=== PATIENT | male | born 1955 | race Caucasian/White ===

== ENCOUNTER 2017-10-18 19:59 | Inpatient (IN) | payer MEDICARE ==
[2017-10-18 20:54] LABS: Hematocrit 23.8 % (42.0-52.0); Mean Platelet Volume 7.9 fL (7.4-10.4); Red Blood Cell (RBC) Count 2.29 mill/uL (4.70-6.10)
[2017-10-18 21:13] LABS: ALT (SGPT) 9 U/L (8-55); AST (SGOT) 12 U/L (5-34); Alkaline Phosphatase 77 U/L (40-150); Anion Gap 22 mmol/L (10-20); BUN (Urea Nitrogen) 115 mg/dL (8.4-25.7); Bilirubin, Total 0.5 mg/dL (0.2-1.2); Calc. Creatinine Clearance 0 mL/min (70-130); Calcium 8.2 mg/dL (7.8-10.44); Carbon Dioxide 11 mmol/L (23-31); Chloride 113 mmol/L (98-107); Estimated GFR-MDRD 4; Globulin 3.4 g/dL (2.4-3.5)
[2017-10-18 21:14] LABS: #Lymphocytes 0.7 thou/uL (1.20-3.40); #Monocytes 0.4 thou/uL (0.11-0.59); #Neutrophils 2.9 thou/uL (1.40-6.50); %Basophils 0.1 % (0.0-1.0); %Eosinophils 0.6 % (0.0-10.0); %Lymphocytes 16.7 % (21.0-51.0); %Monocytes 10.2 % (0.0-10.0); Ovalocytes SLIGHT = 2-5 cells (100X) (0-1/hpf); Tear Drops SLIGHT = 2-5 cells (100X) (0-1/hpf)
[2017-10-19] MEDS ORDERED: Furosemide 100 MG/10 ML VIAL ONE (00:14)
[2017-10-19] MEDS ORDERED: Sodium Bicarbonate 100 MEQ in Dextrose 5% in Water 1,000 ML IV SCH ×2 (00:30)
--- NOTE | 2017-10-19 01:39 | PDOC.EVN ---
Event Note - Event Note Event Note: [id number] 1. CKD stage 4-5 + ACute fluid overload: neph consult, need central venogram and fistulogram also to evalaute avf 2. Metabolic acidosis 3. Hyperkalemia 4. htn plan: see orders
[2017-10-19] MEDS ORDERED: Sodium Bicarb 50 MEQ/50 ML Abboject 8.4% SYRINGE ONE ×3 (01:54→01:58)
[2017-10-19 02:11] LABS: Troponin I 0.048 ng/mL (< 0.028)
[2017-10-19] MEDS ORDERED: Ondansetron HCl/PF 4 MG/2 ML Vial IVP PRN (02:43)
[2017-10-19] MEDS ORDERED: Acetaminophen 325 MG TAB PO PRN (02:43)
[2017-10-19] MEDS: Sodium Bicarbonate Tab 325 MG TAB PO SCH ×4 (03:52→20:54)
[2017-10-19] MEDS: Furosemide 100 MG/10 ML VIAL SLOW IVP SCH ×2 (05:14→14:00)
[2017-10-19 05:21] LABS: #Lymphocytes 0.7 thou/uL (1.20-3.40); #Monocytes 0.4 thou/uL (0.11-0.59); #Neutrophils 2.8 thou/uL (1.40-6.50); %Basophils 0.5 % (0.0-1.0); %Eosinophils 0.9 % (0.0-10.0); %Lymphocytes 17.8 % (21.0-51.0); %Monocytes 9.4 % (0.0-10.0); Mean Platelet Volume 7.9 fL (7.4-10.4); Red Blood Cell (RBC) Count 2.13 mill/uL (4.70-6.10); White Blood Cell (WBC) Count 3.9 thou/uL (4.8-10.8)
[2017-10-19 05:48] LABS: ALT (SGPT) 9 U/L (8-55); AST (SGOT) 12 U/L (5-34); Alkaline Phosphatase 68 U/L (40-150); Anion Gap 20 mmol/L (10-20); BUN (Urea Nitrogen) 120 mg/dL (8.4-25.7); Bilirubin, Total 0.5 mg/dL (0.2-1.2); Calc. Creatinine Clearance 10 mL/min (70-130); Calcium 8.1 mg/dL (7.8-10.44); Carbon Dioxide 12 mmol/L (23-31); Chloride 114 mmol/L (98-107); Estimated GFR-MDRD 4; Globulin 3.2 g/dL (2.4-3.5); Protein, Total 6.7 g/dL (5.8-8.1)
[2017-10-19] MEDS ORDERED: HYDROcodone/Acetaminophen 5/325 mg Tablet PO PRN (08:55)
[2017-10-19] MEDS ORDERED: Epoetin (ESRD) 20,000 UNITS/ML SC SCH (09:00)
[2017-10-19] MEDS ORDERED: Heparin 1,000 UNITS/ML VIAL ONE ×2 (09:00→10:00)
[2017-10-19] MEDS: Heparin 5,000 UNITS/ML VIAL SC SCH ×3 (11:35→20:54)
--- NOTE | 2017-10-19 11:38 | HP ---
DATE OF ADMISSION: 10/19/2017 CHIEF COMPLAINT: Diffuse body swelling. HISTORY OF PRESENT ILLNESS: The patient is a 62-year-old male with past medical history of end-stage renal disease, hypertension, history of remote seminoma and history of percutaneous nephrostomy tube on the right side, now came to the ER complaining of diffuse body swelling. The patient said he used to be on dialysis and off dialysis for the past 7 years. Since he started noticing some swelling all over the body on May, but the swelling got worse the last few weeks. Complains of dyspnea, complains of bilateral leg swelling , complains of some urine output to the nephrostomy tube and also Ruby, but denies any nausea, denies any vomiting, denies any chest pain, denies any palpitations. Today, the swelling got worse, that's why he came to the ER. Denies any fever, denies any chills. Complaints of decreased urine output also. PAST MEDICAL HISTORY: As per HPI. PAST SURGICAL HISTORY: Percutaneous nephrostomy tube, AV fistula. SOCIAL HISTORY: Denies smoking, denies alcohol, denies any drugs. FAMILY HISTORY: Positive for heart problems. ALLERGIES: Reviewed. REVIEW OF SYSTEMS: Constitutional: Denies any fever, denies any chills. Eyes: Denies any vision problems. Ears: Denies any hearing loss. Neck: Denies any neck pain. Cardiovascular: Denies any chest pain. Respiratory: Denies any dyspnea. Denies any cough. Gastrointestinal: Denies any nausea, vomiting. Musculoskeletal: Positive for bilateral lower extremity swelling and positive for left upper extremity swelling. Psychiatric: Denies anxiety. Cranial nerve system: Denies syncope. Integumentary: Denies any rash. All other systems are reviewed and are negative. PHYSICAL EXAMINATION: CONSTITUTIONAL/VITAL SIGNS: At the time of H and P performed, afebrile, respiratory rate 18, pulse ox 97%. GENERAL: The patient appears comfortable. HEENT: Pupils equal, round, and reactive to light. Anterior nares patent. Hearing normal. Teeth intact. Tongue is moist. NECK: No JVD. Supple. Left side of the neck, prominent neck veins seen. CARDIOVASCULAR: S1, S2 present. Regular rate and rhythm, no murmurs, no rubs, no gallops. RESPIRATORY: No wheezing, no rhonchi. Breath sounds bilaterally. GASTROINTESTINAL: Abdomen is soft, nontender, no guarding, no organomegaly, no masses felt. MUSCULOSKELETAL: Bilateral lower extremity, 3+ pitting edema present. Left upper extremity, positive for swelling. PSYCHIATRIC: Mood is appropriate at this time. INTEGUMENTARY: No rashes seen. CRANIAL NERVE SYSTEM: Awake, follows commands. Strength intact, sensory intact. LABORATORY DATA: At the time of H and P performed, sodium 140, potassium 5.7, chloride 113, CO2 of 11, BUN of 115, creatinine 12.57. White count 4, hemoglobin 7.5, platelet count is 155. ASSESSMENT AND PLAN: The patient is 62-year-old male; 1. Acute fluid overload plus chronic kidney disease stage IV to V. The patient did speak to the cost reduction engineer. Patient has dialysis. The patient did receive 100 mg of Lasix in the ER. We will monitor urine output. We will follow the patient closely. 2. Severe metabolic acidosis. The patient did receive amp of IV bicarb push in the ER. We will monitor bicarbonate level closely. 3. Hyperkalemia. We will give Kayexalate 30 grams p.o. x1. 4. Acute anemia of chronic disease. Monitor hemoglobin closely. We will check iron studies. 5. History of hypertension. Continue home blood pressure medications. 6. History of remote seminoma, status post percutaneous nephrostomy tube. Continue nephrostomy tube. 7. AVF: Need to r/o central venous stenosis The case was discussed in detail with the patient and patient's also. JOSE MARTIN
[2017-10-19] MEDS ORDERED: Epoetin (ESRD) 10,000 UNITS/ML VIAL SC SCH (12:00)
--- NOTE | 2017-10-19 12:56 | PDOC.EVN ---
Event Note - Event Note Event Note: pt seen and examined.admitted earlier today for swelling.Foun dto have worsening CKD. Chart reviewed.care discussed w pt and family. VSS. CTA b/l. RRR severe LE edema as well as edema around HD fistula. Pt agreeable to HD. Discussed w Dr. Day. Fistula was tried for Hd without success. Will need Temp HD cathter. will get done tomorrow. Cont IV lasix for now. Pt makes some urine. Cont Bicarb PO. Monitor labs. recheck K later today.Kayexalate,lasix given. Get ECHo to assess cardiac Function. Start Procrit for anemia of chr kidney disease.Pt refusing blood transfusion for muslim reasons. will follow. daily labs
[2017-10-19] MEDS ORDERED: CEFAZOLIN/Water 2 GM/20 ML SYRINGE SLOW IVP SCH (14:15)
--- NOTE | 2017-10-19 15:26 | HP ---
HISTORY OF PRESENT ILLNESS: Ajit Farah is a 62-year-old male patient with end-stage renal diseas e, we need dialysis access. Potassium is 5.3, BUN 120, creatinine 12. GFR 4. The patient was order ed n.p.o. today, but ate lunch. He has an IV in his right antecubital fossa, which are removed. The patient's left arm is edematous, hand to shoulder and has collateral veins palpable periclavicular l eft. This is indicative of subclavian vein occlusion. The patient has a Mor fistula left wrist t hat I placed on 05/02/2010. The patient states that since placement, he has had progressive edema an d enlargement of his left arm, hand to shoulder. He does not have evaluation of this. Patient was o n dialysis for a short time, but stopped dialysis in 2010 and recently had deterioration in renal fun ction, needs to start dialysis again. He has had left IJ hemodialysis catheter placed on 01/[address] Sprague, on 02/02/2010 placed a right nephrostomy tube, cystoscopy and Ruby catheter placeme nt and on another day repeat cystoscopy and ureteral stent placement. He has had a peritoneal dialys is catheter that would not work well and has since been removed in 2009, last vein mapping was 0. PAST MEDICAL HISTORY: Hypertension, chronic kidney disease, history of radiation and chemotherapy fo r seminoma and retroperitoneal, right inguinal hernia repair, umbilical hernia repair in the past, pe ritoneal dialysis catheter placed in the past removed, left arm Mor fistula placed. Multiple dial ysis catheters placed removed. TOBACCO: None. ALCOHOL: None. DRUG USE: None. ALLERGIES LIST: MORPHINE. SOCIAL HISTORY: Tobacco none. Alcohol none. MEDICATIONS: Hydrocodone, Zofran and metoprolol 50 mg daily. REVIEW OF SYSTEMS: Ten point noncontributory except as noted above. PHYSICAL EXAMINATION: VITAL SIGNS: 5 feet 8, 249 pounds, 38 BMI, 97.8, 76, 18, 167/78. GENERAL: Antecubital IV removed, right. Left arm swelling hand to shoulder. Collateral veins palpa ble, periclavicular left. LUNGS: Clear to auscultation. CARDIAC: Regular rate and rhythm without murmur or gallop. ABDOMEN: Obese, soft, nontender. EXTREMITIES: Edematous, left upper extremity was edematous hand and shoulder with palpable venous co llaterals, periclavicular left. LABORATORY DATA: White count 3.9, hemoglobin 6.9, platelet count 166,000. Electrolytes as noted abo ve. ASSESSMENT AND PLAN: 1. End-stage renal disease in need of dialysis access. Unfortunately, he has been eating lunch. At this point, would recommend placement of hemodialysis catheter and central line tomorrow, would avoi d IVs above his wrist, right. We will obtain ultrasound vein mapping right arm for dialysis access. He would benefit from a left arm fistulogram in the future and document left subclavian vein occlusi on. Discussed with Nephrology and might do that prior to discharge home this hospitalization and he will need a new dialysis access in his right arm and should avoid IV access, blood draws above his wr ist. Could place a femoral vein central line if necessary. 2. History of retroperitoneal radiation for seminoma. 3. Obesity.
--- NOTE | 2017-10-19 18:40 | ULT ---
BILATERAL UPPER EXTREMITY VENOUS ULTRASOUND MAPPING: Date: 10/19/17 HISTORY: End-stage renal disease. COMPARISON: None. FINDINGS: RIGHT UPPER EXTREMITY BRACHIAL ARTERY: 6.3 mm RADIAL ARTERY: 3.7 mm ULNAR ARTERY: 2.7 mm CEPHALIC VEIN Proximal Humerus: 1.0 mm Mid Humerus: 1.0 mm Distal Humerus: 1.0 mm Antecubital Fossa: 0.9 mm Proximal Forearm: 1.4 mm Mid Forearm: 1.2 mm Distal Forearm: 1.0 mm BASILIC VEIN Proximal Humerus: 4.0 mm Mid Humerus: 4.5 mm Distal Humerus: 3.9 mm Antecubital Fossa: Clot Proximal Forearm: 2.0 mm Mid Forearm: 2.3 mm Distal Forearm: 1.2 mm LEFT UPPER EXTREMITY Arteries could not be appreciated due to edema. CEPHALIC VEIN Proximal Humerus: 5.0 mm Mid Humerus: 5.2 mm Distal Humerus: 4.9 mm Antecubital Fossa: 5.4 mm Proximal Forearm: 5.1 mm Mid Forearm: 4.1 mm Distal Forearm: 4.6 mm BASILIC VEIN Proximal Humerus: 7.3 mm Mid Humerus: 6.1 mm Distal Humerus: 5.6 mm Antecubital Fossa: 4.9 mm Proximal Forearm: Fistula Mid Forearm: 2.8 mm Distal Forearm: 2.0 mm IMPRESSION: Measurements as above. POS: [facility]
[2017-10-20] MEDS: Sodium Bicarbonate Tab 325 MG TAB PO SCH ×4 (04:09→21:53)
[2017-10-20 05:34] LABS: BUN (Urea Nitrogen) 118 mg/dL (8.4-25.7); Calc. Creatinine Clearance 10 mL/min (70-130); Calcium 7.5 mg/dL (7.8-10.44); Carbon Dioxide Less than 8 mmol/L (23-31); Chloride 114 mmol/L (98-107); Estimated GFR-MDRD 4; Magnesium 2.1 mg/dL (1.6-2.6); Phosphorus 8.2 mg/dL (2.3-4.7)
[2017-10-20] MEDS ORDERED: Sodium Bicarb 50 MEQ/50 ML Abboject 8.4% SYRINGE IVP SCH (06:00)
--- NOTE | 2017-10-20 06:25 | CON ---
DATE OF CONSULTATION: 10/19/2017 CONSULTING PHYSICIAN: Dr. Saba. REASON FOR CONSULTATION: Acute kidney injury. REASON FOR ADMISSION: Swelling. HISTORY OF PRESENT ILLNESS: This 62-year-old male with history of chronic kidney disease, hypertensi on, remote history of seminoma, urinary obstruction, came to the hospital with swelling. The patient has history of dialysis in the past with hemodialysis and peritoneal dialysis. He was on hemodialys is with some recovery of function, has been off dialysis for 7 years, and now came to the hospital wi th progressive swelling. He was also having progressive swelling in his access. He had a fistula pl aced in that arm, and it has been swelling. The patient was evaluated today and his fistula was not functioning and Surgery was consulted and the patient denies any chest pain, no shortness of breath, no palpitations. No fever or chills. No nausea, vomiting. PAST MEDICAL HISTORY: Positive for end-stage renal disease, hypertension, remote history of seminoma , urinary tract infections. PAST SURGICAL HISTORY: Percutaneous nephrostomy tube, AV fistula placement, PD catheter placement. HOME MEDICATIONS: Include Elrod, Ambien, and metoprolol. ALLERGIES: MORPHINE. SOCIAL HISTORY: No smoking, alcohol or illicit drug abuse. FAMILY HISTORY: Positive for heart disease. REVIEW OF SYSTEMS: The following complete review of systems was negative, unless otherwise mentioned in the HPI or below: Constitutional: Weight loss or gain, ability to conduct usual activities. Skin: Rash, itching. Eyes: Double vision, pain. ENT/Mouth: Nose bleeding, neck stiffness, pain, tenderness. Cardiovascular: Palpitations, dyspnea on exertion, orthopnea. Respiratory: Shortness of breath, wheezing, cough, hemoptysis, fever or night sweats. Gastrointestinal: Poor appetite, abdominal pain, heartburn, nausea, vomiting, constipation, or diarr hea. Genitourinary: Urgency, frequency, dysuria, nocturia. Musculoskeletal: Pain, swelling. Neurologic/Psychiatric: Anxiety, depression. Allergy/Immunologic: Skin rash, bleeding tendency. PHYSICAL EXAMINATION: GENERAL: This is a well-built male in no apparent distress. VITAL SIGNS: Temperature 98.4, pulse 70, respiratory rate 18, blood pressure 158/72. HEENT: Atraumatic, normocephalic. Oral mucosa is moist. NECK: Supple, no masses. CARDIOVASCULAR: S1, S2 heard. Rate and rhythm regular. RESPIRATORY: Clear. GASTROINTESTINAL: Abdomen is soft. MUSCULOSKELETAL: 2+ edema. DERMATOLOGIC: No skin rash. NEUROLOGIC: Alert, awake. PSYCHIATRIC: Mood and affect normal. LABORATORY DATA: Hemoglobin is 6.9. Potassium is 5.3, bicarbonate is 12, BUN is 120, and creatinine is 12.7. ASSESSMENT AND PLAN: 1. End-stage renal disease. Plan is to start on hemodialysis, but access is not working. We will c onsult surgery for possible catheter placement and revision of fistula if possible. 2. Hyperkalemia, better. Continue medical management. 3. Acidosis. Continue on bicarbonate. 4. Edema with fluid overload. We will continue on Lasix. The patient still makes urine. He made 1 400 mL of urine. 5. Anemia, need transfusions. Continue Epogen with dialysis for now. 6. Mild hypoalbuminemia. The patient is agreeable to start dialysis. He understands the risk, Surgery consult for access plac ement. Thank you for the consult.
[2017-10-20] MEDS: Furosemide 100 MG/10 ML VIAL SLOW IVP SCH ×2 (06:40→17:22)
[2017-10-20] MEDS ORDERED: Dextrose 50% Abboject 50 ML SYRINGE IVP SCH (07:30)
[2017-10-20] MEDS ORDERED: Insulin Regular 300 UNITS/3 ML VIAL IVP SCH (07:30)
[2017-10-20] MEDS ORDERED: Sodium Bicarb 50 MEQ/50 ML VIAL IVP SCH (07:45)
[2017-10-20] MEDS ORDERED: Epoetin (NON-ESRD) 20,000 UNITS/ML ML IVP SCH (09:00)
[2017-10-20] MEDS: Heparin 5,000 UNITS/ML VIAL SC SCH ×3 (09:03→21:55)
[2017-10-20] MEDS: HYDROcodone/Acetaminophen 5/325 mg Tablet PO PRN ×2 (09:04→19:17)
--- NOTE | 2017-10-20 14:14 | OP ---
PREOPERATIVE DIAGNOSES: Clinically, subclavian vein obstruction, left arm with marked left arm edema , inadequate cephalic vein, right arm, ultrasound vein mapping, iatrogenic thrombus in his basilic ve in due to intravenous access antecubital area, end-stage renal disease patient (immediately removed o n my evaluation) with severe acidosis and uremia, need for urgent dialysis access, potassium 6.3, car bon dioxide less than 8, anion gap too numerous to evaluate (lack of n.p.o. status prevented cuffed t unnel dialysis catheter placement yesterday). POSTOPERATIVE DIAGNOSES: Clinically, subclavian vein obstruction, left arm with marked left arm varun a, inadequate cephalic vein, right arm, ultrasound vein mapping, iatrogenic thrombus in his basilic v ein due to intravenous access antecubital area, end-stage renal disease patient (immediately removed on my evaluation) with severe acidosis and uremia, need for urgent dialysis access, potassium 6.3, ca rbon dioxide less than 8, anion gap too numerous to evaluate (lack of n.p.o. status prevented cuffed tunnel dialysis catheter placement yesterday). PROCEDURE: Right femoral vein Trialysis catheter placement. SURGEON: Juvenal Reeves M.D. ANESTHESIA: 1% Xylocaine. PROCEDURE IN DETAIL: At the patient's bedside, his right groin was clipped of hair, prepared with Ch loraPrep, draped in routine fashion. Local anesthetic with 1% Xylocaine infiltrated skin and subcuta neous tissue. Second ChloraPrep used after it was draped. Femoral vein cannulated with the trocar c atheter. J-wire threaded. Trocar catheter removed. Skin incised and enlarged sharply and smaller a nd medium sized dilators placed over the J-wire into the femoral vein and removed. The distal port o f the Trialysis catheter placed over the J-wire in the femoral vein. Each port aspirated blood and f lushed with heparinized saline solution 100 units heparin per mL. Patient tolerated the procedure we ll without complications. Catheter secured with 2 interrupted sutures of 3-0 nylon. Sterile dressin g applied and an urgent dialysis ordered (although this catheter was placed in 0700, patient did not go to dialysis until 12:30 p.m. leading to cancellation of placement of cuffed tunnel dialysis cathet er today).
--- NOTE | 2017-10-20 14:42 | PDOC.PN ---
- Subjective Encounter Start Date: 10/20/17 Encounter Start Time: 14:40 Subjective: actually feels much better. denies any new complaints - Objective MAR Reviewed: Yes Vital Signs & Weight: Vital Signs (12 hours) Temp Pulse Resp BP BP Pulse Ox 10/20/17 11:37 97.8 F 69 12 138/67 93 L 10/20/17 08:00 97.7 F 76 20 137/67 92 L 10/20/17 06:37 76 20 145/68 H 10/20/17 04:00 98.4 F 76 18 131/64 95 Weight Weight 248 lb I&O: 10/19/17 10/20/17 10/21/17 06:59 06:59 06:59 Intake Total 50 1438 Output Total 325 2450 Balance -275 -1012 Result Diagrams: 10/19/17 05:06 10/20/17 04:27 Radiology Reviewed by me: Yes (ECHO-diastolic dysFx.severe Pulm HTN.) Phys Exam - Physical Examination Constitutional: NAD HEENT: PERRLA, moist MMs, sclera anicteric, oral pharynx no lesions Neck: no nodes, no JVD, supple, full ROM Respiratory: no wheezing, no rales, no rhonchi, clear to auscultation bilateral Cardiovascular: RRR, no significant murmur, no rub, gallop Gastrointestinal: soft, non-tender, no distention, positive bowel sounds Musculoskeletal: no edema, pulses present Neurological: non-focal, normal sensation, moves all 4 limbs Psychiatric: normal affect, A&O x 3 Skin: no rash Dx/Plan (1) Acute kidney injury superimposed on CKD Code(s): N17.9 - ACUTE KIDNEY FAILURE, UNSPECIFIED; N18.9 - CHRONIC KIDNEY DISEASE, UNSPECIFIED Status: Acute (2) High anion gap metabolic acidosis Code(s): E87.2 - ACIDOSIS Status: Acute (3) Fluid overload Code(s): E87.70 - FLUID OVERLOAD, UNSPECIFIED Status: Acute (4) Hyperkalemia Code(s): E87.5 - HYPERKALEMIA Status: Acute (5) DM2 (diabetes mellitus, type 2) Status: Acute (6) HTN (hypertension) Code(s): I10 - ESSENTIAL (PRIMARY) HYPERTENSION Status: Acute (7) Anemia in chronic kidney disease (CKD) Code(s): N18.9 - CHRONIC KIDNEY DISEASE, UNSPECIFIED; D63.1 - ANEMIA IN CHRONIC KIDNEY DISEASE Status: Chronic (8) Troponin level elevated Code(s): R74.8 - ABNORMAL LEVELS OF OTHER SERUM ENZYMES Status: Acute Comment: likley due to JANEL - Plan DVT proph w/SCDs Given dextrose+insulin & kayexalate this am for high K.monitor. -: HD catheter placed.HD to be initiated today.receiving Po bicarb as well -: cont home meds as below. avoid nephrotoxic meds -: rechekc potassium post HD.am labs. -: cont IV lasix for now.Nephrology following. * .cont epogen.Pt refused blood transfusion due to restorationist reasons. * recheck CBC in am. * cont supportive care Review of Systems - Review of Systems Constitutional: negative: Fever, Chills, Sweats, Weakness, Malaise, Other ENT: negative: Ear Pain, Ear Discharge, Nose Pain, Nose Discharge, Nose Congestion, Mouth Pain, Mouth Swelling, Throat Pain, Throat Swelling, Other Respiratory: negative: Cough, Dry, Shortness of Breath, Hemoptysis, SOB with Excertion, Pleuritic Pain, Sputum, Wheezing Cardiovascular: negative: Chest Pain, Palpitations, Orthopnea, Paroxysmal Noc. Dyspnea, Edema, Light Headedness, Other Gastrointestinal: negative: Nausea, Vomiting, Abdominal Pain, Diarrhea, Constipation, Melena, Hematochezia, Other Genitourinary: negative: Dysuria, Frequency, Incontinence, Hematuria, Retention , Other Musculoskeletal: negative: Neck Pain, Shoulder Pain, Arm Pain, Back Pain, Hand Pain, Leg Pain, Foot Pain, Other Neurological: negative: Weakness, Numbness, Incoordination, Change in Speech, Confusion, Seizures, Other - Medications/Allergies Allergies/Adverse Reactions: Allergies Allergy/AdvReac Type Severity Reaction Status Date / Time morphine Allergy Rash Verified 10/19/17 03:43 Medications: Current Medications Acetaminophen (Tylenol) 650 mg PO Q4H PRN PRN Reason: Headache/Fever or Pain Hydrocodone Bitart/Acetaminophen (Gary 5/325) 2 tab PO Q4H PRN PRN Reason: Moderate Pain (4-6) Last Admin: 10/20/17 09:04 Dose: 2 tab Hydrocodone Bitart/Acetaminophen (Gary 5/325) 1 tab PO Q4H PRN PRN Reason: Mild Pain (1-3) Epoetin Brian (Procrit) 10,000 units IVP [id number]@[id number] [facility] Furosemide (Lasix) 80 mg SLOW IVP 0600,1400 [facility] Last Admin: 10/20/17 06:40 Dose: 80 mg Heparin Sodium (Porcine) (Heparin) 5,000 units SC TID [facility] Last Admin: 10/20/17 09:03 Dose: 5,000 units Metoprolol Succinate (Toprol Xl) 50 mg PO DAILY [facility] Last Admin: 10/20/17 06:40 Dose: 50 mg Ondansetron HCl (Zofran) 4 mg IVP Q6H PRN PRN Reason: Nausea/Vomiting Last Admin: 10/20/17 06:49 Dose: 4 mg Sodium Bicarbonate (Bicarbonate, Sodium) 1,300 mg PO 0300,0900,1500,2100 [facility] Last Admin: 10/20/17 09:26 Dose: 1,300 mg Sodium Chloride (Flush - Normal Saline) 10 ml IVF Q12HR [facility] Last Admin: 10/19/17 20:55 Dose: Not Given Sodium Chloride (Flush - Normal Saline) 10 ml IVF PRN PRN PRN Reason: Saline Flush Last Admin: 10/20/17 09:04 Dose: 10 ml
--- NOTE | 2017-10-20 15:29 | PRG ---
DATE OF SERVICE: 10/20/2017 SUBJECTIVE: Mr. Ajit Farah this morning had a potassium of 3.3, severely abnormal anion gap and se dariel acidosis. His surgery was postponed and a temporary dialysis catheter placed in his right groin at 0700 hours for "EMERGENT" dialysis. Patient, however, did not go to dialysis until 12:45. His s urgery was therefore canceled today and he will dialyze using his temporary groin dialysis catheter. We will ask that he be dialyzed first thing in the morning and then at approximate ly 11:30 here noon, we will place a cuffed tunnel dialysis catheter and a central line, so we can rem ove his groin catheter. Patient has clinically an obstructed left subclavian vein and a markedly dorita matous left arm with venous collaterals left periclavicular area. He has a fistula that has not been able to be accessed, because of severe arm edema. It is very likely that his left arm is exhausted for dialysis access. On admission in his chronic kidney disease, end-stage renal disease, a right an tecubital IV was placed resulted in thrombosis of his basilic vein. His cephalic vein is inadequate. Such ocurrence, probably will [place] the patient to have a prosthetic graft, which has poor durabi lity and increased interventions to maintain patency. Patient is running out of dialysis access alre ness. Once his edema has improved, we will expose his right arm for the possibility of a fistula, hop efully the thrombus can be removed and he may need a staged basilic vein fistula with later transposi tion or possibly he may need a prosthetic graft placed. We will plan this portion of the operation e fr[place] next week. Plan is to have dialyze him first thing in the morning using his Trialysis right pattie in catheter that are placed at 7:00 this morning and then he will be available for 11:30 to 12:00 to have hemodialysis catheter cuffed tunnel placed and a central line, so we can remove his right groin catheter.
[2017-10-20] MEDS: Epoetin (ESRD) 10,000 UNITS/ML VIAL IVP SCH (17:20)
[2017-10-20] MEDS ORDERED: cloNIDine 0.1 MG TAB PO PRN (17:54)
[2017-10-20] MEDS ORDERED: cloNIDine 0.1 MG TAB PO SCH (18:00)
[2017-10-20 18:11] LABS: Anion Gap 18 mmol/L (10-20); BUN (Urea Nitrogen) 97 mg/dL (8.4-25.7); Calc. Creatinine Clearance 12 mL/min (70-130); Calcium 7.9 mg/dL (7.8-10.44); Carbon Dioxide 20 mmol/L (23-31); Chloride 108 mmol/L (98-107); Estimated GFR-MDRD 5
--- NOTE | 2017-10-20 23:39 | PRG ---
DATE OF SERVICE: 09/19/2017 SUBJECTIVE: Patient was seen and examined at bedside and overnight events noted. Patient denies any shortness of breath or chest pain or palpitation. No history of nausea or vomiting or diarrhea or f ever or chills or cramps. OBJECTIVE: GENERAL: This is an obese male in no apparent distress. VITAL SIGNS: Temperature 97.8, pulse 69, respiratory , blood pressure 138/67. HEENT: Atraumatic, normocephalic. Oral mucosa is moist. NECK: Supple. CARDIOVASCULAR: S1, S2 heard. Rate and rhythm regular. RESPIRATORY: Clear to auscultation. GASTROINTESTINAL: Abdomen is soft. MUSCULOSKELETAL: No tenderness. No edema. DERMATOLOGIC: No skin rash. NEUROLOGIC: Alert and awake and oriented x3. No focal neurologic deficits. Moving all the extremit ies. PSYCHIATRIC: Mood and affect normal. LABORATORY DATA: Potassium was 6.3 this morning, bicarbonate was less than 8, BUN is 118, creatinine is 12.3. ASSESSMENT AND PLAN: 1. End-stage renal disease. Will plan for dialysis. 2. Hyperkalemia, emergent dialysis today. 3. Acidosis getting worse. 4. Edema. 5. Hypoalbuminemia. 6. Anemia. Plan is to start on dialysis. I appreciate help from Surgery. Plan for surgery today.
[2017-10-21] MEDS: Sodium Bicarbonate Tab 325 MG TAB PO SCH ×5 (03:20→21:45)
[2017-10-21] MEDS: Furosemide 100 MG/10 ML VIAL SLOW IVP SCH ×2 (05:15→15:45)
[2017-10-21 05:41] LABS: #Eosinphils 0.1 thou/uL (0.0-0.7); #Lymphocytes 0.8 thou/uL (1.20-3.40); #Monocytes 0.5 thou/uL (0.11-0.59); #Neutrophils 3.2 thou/uL (1.40-6.50); %Basophils 0.5 % (0.0-1.0); %Eosinophils 1.3 % (0.0-10.0); %Lymphocytes 18.3 % (21.0-51.0); %Monocytes 10.1 % (0.0-10.0); Hematocrit 20.8 % (42.0-52.0); Red Blood Cell (RBC) Count 2.03 mill/uL (4.70-6.10); White Blood Cell (WBC) Count 4.5 thou/uL (4.8-10.8)
[2017-10-21 05:45] VITALS: BMI 37.6
[2017-10-21 05:50] LABS: Anion Gap 15 mmol/L (10-20); BUN (Urea Nitrogen) 98 mg/dL (8.4-25.7); Calc. Creatinine Clearance 11 mL/min (70-130); Calcium 7.6 mg/dL (7.8-10.44); Carbon Dioxide 24 mmol/L (23-31); Chloride 108 mmol/L (98-107); Estimated GFR-MDRD 5
[2017-10-21 08:10] LABS: Iron 32 ug/dL (65-175)
[2017-10-21] MEDS: Heparin 5,000 UNITS/ML VIAL SC SCH ×3 (09:00→21:47)
[2017-10-21] MEDS ORDERED: Heparin 10,000 UNITS/ 10 ML VIAL ONE (09:00)
--- NOTE | 2017-10-21 09:22 | PDOC.PN ---
- Subjective Encounter Start Date: 10/21/17 Encounter Start Time: 07:20 -: old records requested/rev pt seen in dialysis room, no complaint, tolerating dialysis, he does not want blood transfusion - Objective Resuscitation Status: Resuscitation Status FULL:Full Resuscitation MAR Reviewed: Yes Vital Signs & Weight: Vital Signs (12 hours) Temp Pulse Resp BP Pulse Ox 10/21/17 04:00 98.2 F 72 20 138/67 95 10/20/17 23:41 97.7 F 75 20 126/63 95 Weight Weight 247 lb 8 oz I&O: 10/20/17 10/21/17 10/22/17 06:59 06:59 06:59 Intake Total 1438 1170 Output Total 2450 3550 Balance -1012 -2380 Result Diagrams: 10/21/17 05:00 10/21/17 05:00 EKG Reviewed by me: Yes (nsr) Phys Exam - Physical Examination Constitutional: NAD HEENT: PERRLA, moist MMs, sclera anicteric Neck: no JVD, supple Respiratory: no wheezing, no rales, no rhonchi reduced air entry at base Cardiovascular: RRR, no significant murmur, no rub Gastrointestinal: soft, non-tender, no distention, positive bowel sounds obesity+ Musculoskeletal: pulses present, edema present left upper extrimity swelling Neurological: non-focal, normal sensation, moves all 4 limbs Psychiatric: normal affect, A&O x 3 Skin: no rash, normal turgor Dx/Plan (1) Acute on chronic combined systolic and diastolic CHF (congestive heart failure) Code(s): I50.43 - ACUTE ON CHRONIC COMBINED SYSTOLIC AND DIASTOLIC HRT FAIL Status: Acute (2) Acute worsening of stage 4 chronic kidney disease Code(s): N28.9 - DISORDER OF KIDNEY AND URETER, UNSPECIFIED; N18.4 - CHRONIC KIDNEY DISEASE, STAGE 4 (SEVERE) Status: Acute (3) DM2 (diabetes mellitus, type 2) Status: Acute (4) Fluid overload Code(s): E87.70 - FLUID OVERLOAD, UNSPECIFIED Status: Acute (5) HTN (hypertension) Code(s): I10 - ESSENTIAL (PRIMARY) HYPERTENSION Status: Acute (6) High anion gap metabolic acidosis Code(s): E87.2 - ACIDOSIS Status: Acute (7) Hyperkalemia Code(s): E87.5 - HYPERKALEMIA Status: Acute (8) Macrocytic anemia Code(s): D53.9 - NUTRITIONAL ANEMIA, UNSPECIFIED Status: Acute (9) Moderate mitral regurgitation Code(s): I34.0 - NONRHEUMATIC MITRAL (VALVE) INSUFFICIENCY Status: Acute (10) Pulmonary hypertension Code(s): I27.20 - PULMONARY HYPERTENSION, UNSPECIFIED Status: Acute (11) Severe tricuspid regurgitation Code(s): I07.1 - RHEUMATIC TRICUSPID INSUFFICIENCY Status: Acute (12) Troponin level elevated Code(s): R74.8 - ABNORMAL LEVELS OF OTHER SERUM ENZYMES Status: Acute Comment: likley due to JANEL (13) Obesity (BMI 30-39.9) Code(s): E66.9 - OBESITY, UNSPECIFIED Status: Chronic - Plan cont current plan of care * pt is getting dialysis via right femoral trilysis catheter. * will add ferrous sulfate, nephrovite * continue selected home medication. * medication reviewed as below * symptomatic treatment * HD as per nephro * will need dialysis access permanent one, AVF unsure working on left UE Review of Systems - Review of Systems ENT: negative: Ear Pain, Ear Discharge, Nose Pain, Nose Discharge, Nose Congestion, Mouth Pain, Mouth Swelling, Throat Pain, Throat Swelling, Other Respiratory: negative: Cough, Dry, Shortness of Breath, Hemoptysis, SOB with Excertion, Pleuritic Pain, Sputum, Wheezing Cardiovascular: negative: Chest Pain, Palpitations, Orthopnea, Paroxysmal Noc. Dyspnea, Edema, Light Headedness, Other Gastrointestinal: negative: Nausea, Vomiting, Abdominal Pain, Diarrhea, Constipation, Melena, Hematochezia, Other Genitourinary: negative: Dysuria, Frequency, Incontinence, Hematuria, Retention , Other Musculoskeletal: negative: Neck Pain, Shoulder Pain, Arm Pain, Back Pain, Hand Pain, Leg Pain, Foot Pain, Other Skin: negative: Rash, Lesions, James, Bruising, Other - Medications/Allergies Allergies/Adverse Reactions: Allergies Allergy/AdvReac Type Severity Reaction Status Date / Time morphine Allergy Rash Verified 10/19/17 03:43 Medications: Current Medications Acetaminophen (Tylenol) 650 mg PO Q4H PRN PRN Reason: Headache/Fever or Pain Hydrocodone Bitart/Acetaminophen ([place] 5/325) 2 tab PO Q4H PRN PRN Reason: Moderate Pain (4-6) Last Admin: 10/20/17 19:17 Dose: 2 tab Hydrocodone Bitart/Acetaminophen ([place] 5/325) 1 tab PO Q4H PRN PRN Reason: Mild Pain (1-3) Clonidine (Catapres) 0.1 mg PO Q4H PRN PRN Reason: SBP>160 Epoetin Brian (Procrit) 10,000 units IVP [id number]@0900 [facility] Last Admin: 10/20/17 17:20 Dose: 10,000 units Ferrous Sulfate (Feosol) 325 mg PO BID-[facility] Furosemide (Lasix) 80 mg SLOW IVP 0600,1400 [facility] Last Admin: 10/21/17 05:15 Dose: 80 mg Heparin Sodium (Porcine) (Heparin) 5,000 units SC TID [facility] Last Admin: 10/20/17 21:55 Dose: 5,000 units Hydralazine HCl (Apresoline) 10 mg SLOW IVP Q4H PRN PRN Reason: SBP>170 Metoprolol Succinate (Toprol Xl) 50 mg PO DAILY [facility] Last Admin: 10/21/17 05:26 Dose: 50 mg Ondansetron HCl (Zofran) 4 mg IVP Q6H PRN PRN Reason: Nausea/Vomiting Last Admin: 10/20/17 06:49 Dose: 4 mg Sodium Bicarbonate (Bicarbonate, Sodium) 1,300 mg PO 0300,0900,1500,2100 [facility] Last Admin: 10/21/17 03:20 Dose: 1,300 mg Sodium Chloride (Flush - Normal Saline) 10 ml IVF Q12HR [facility] Last Admin: 10/20/17 21:57 Dose: 10 ml Sodium Chloride (Flush - Normal Saline) 10 ml IVF PRN PRN PRN Reason: Saline Flush Last Admin: 10/20/17 09:04 Dose: 10 ml Vitamin B Complex/Vit C/Folic Acid (Nephro-Lonny Tablet) 1 tab PO DAILY [facility]
[2017-10-21] MEDS ORDERED: Tuberculin PPD 0.1 ML VIAL I-DERMAL SCH (10:30)
[2017-10-21] MEDS ORDERED: Bupivacaine/Epinephrine 0.25% 30 ML VIAL ONE (10:48)
[2017-10-21] MEDS ORDERED: Heparin 10,000 UNITS/1 ML VIAL ONE ×2 (10:48→12:52)
[2017-10-21] MEDS ORDERED: Sodium Chloride 0.9% 20 ML ONE (10:48)
[2017-10-21] MEDS ORDERED: Diprivan 20 ML ONE (12:37)
[2017-10-21] MEDS ORDERED: Ioversol 68 % 50 ML VIAL ONE ×2 (12:41→12:45)
--- NOTE | 2017-10-21 14:44 | RAD ---
INTRAOPERATIVE CATHETERIZATION WITH CONTRAST: Date: 10/21/17 INDICATION: Hemodialysis catheter placement. FLUOROSCOPIC TIME: 4 minutes and 32 seconds. Total exposure of 22.7 mGy*cm^2. FINDINGS: Submitted images demonstrate catheter placement within the region of the common iliac veins bilateral ly. Subsequent images demonstrate contrast opacification involving the common iliac venous vasculatur e with contrast filling numerous paravertebral collateral veins. Subsequent images demonstrate cathet erization of a selected vein extending off of the right external iliac vein filling collateral veins with the right paralumbar region. 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 POS: JACKIE
[2017-10-21] MEDS: Folic Acid/Vit B Comp W-C PO SCH (15:32)
[2017-10-21] MEDS: Ferrous Sulfate 325 MG TAB PO SCH ×2 (15:32→16:44)
[2017-10-21] MEDS ORDERED: Propofol 200 MG/20 ML VIAL ONE (16:51)
--- NOTE | 2017-10-21 19:13 | OP ---
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 Preexisting temporary hemodialysis catheter, right femoral vein. Note the patient's anato my in the left iliac or such that it joins the vena cava in a tortuous retrograde fashion. Connectin g venous outflow turns back caudally before joining the right iliac vein cava with outflow multiple c ollaterals. PROCEDURE PERFORMED: Placement of left femoral vein, cuffed tunnel dialysis catheter using fluorosco py with intraoperative vena cavogram. Note future femoral vein dialysis catheter would be best perfo rmed on the right femoral vein than the left. SURGEON: Dr. Juvenal Reeves. ANESTHESIA: Intravenous sedation and local ultrasound fluoroscopy used. PROCEDURE IN DETAIL: The patient was taken to the operating room where under intravenous sedation, n mychal and chest were prepared with ChloraPrep, draped in routine fashion. Ultrasound used to visualize the right internal jugular vein, which was very small. It was cannulated with trocar catheter and J wire would not thread, retroclavicular into the cava demonstrated an occlusion. I could not identif y the left internal jugular veins, thus these attempts were abandoned. Local anesthetic 0.25% Marcai ne with epinephrine 30 mL mixed with 2% Xylocaine mixture used for local anesthetic. Attention was then turned to the left groin as the patient had a preexisting temporary dialysis nish ter. Local anesthetic infiltrated into skin and subcutaneous tissue and trocar catheter cannulated t he right femoral vein. J-wire threaded. A counter incision was made in the left anterior lateral th igh and using the tunneling device, the angiodynamics femoral vein catheter length tunneled between t he two incisions, placing the fabric cuff beneath the skin. Smaller and medium sized dilators placed over the J-wire into the femoral vein. Dilator and pull-away sheath in place to the J-wire into the femoral vein and catheter placed with some resistance. Fluoroscopic images revealed the catheter ti p to be turned on itself. I then tried to thread the J wire through the catheter and it would not th read. I then transected the catheter near the groin site over the J wire, leaving the J wire, removi ng the catheter, holding pressure for hemostasis. Again, the J wire would not thread. I then expect ed an occlusion anomalous anatomy and a more distal counter incision was made in the left anterior la teral thigh and the new catheter tunneled between the incisions. A new dilator and pull-away sheath placed over the J-wire into the femoral vein, and J wire and dilator removed. Catheter placed with a pull-away sheath. Fluoroscopic images revealed it to be non-kinked. I then injected contrast in th e catheter and there was an anomalous anatomy and that the outflow vein just beyond the tip of the ca theter turned caudally and joined the right iliac vein or cava and then had outflow drainage cephalad . Each port aspirated blood and flushed with saline solution and then heparinized saline solution 10 00 units heparin per mL indicated volume of the port. Skin incisions approximated with interrupted s ubdermal 4-0 Monocryl after subcutaneous tissues approximated with 3-0 Monocryl. DermaGlue and steri le dressings applied. Cavogram then performed again through the right-sided catheter through the art erial port. This revealed outflow directly. There were collateral veins. This may be indicative th e superior vena cava occlusion. Catheter was then flushed with saline solution and heparinized salin e solution 1000 units of heparin per mL indicated volume of the port.
--- NOTE | 2017-10-21 21:31 | PRG ---
DATE OF SERVICE: 10/21/2017 SUBJECTIVE: The patient was seen and examined at the bedside and overnight events noted. The patien t denies any shortness of breath or chest pain or palpitation. No history of nausea or vomiting or d iarrhea or fever or chills or cramps. OBJECTIVE: GENERAL: This is a well-built male, in no apparent distress. VITAL SIGNS: Temperature 98.1, pulse 81, respiratory rate 18, blood pressure 138/67. HEENT: Atraumatic, normocephalic. Oral mucosa is moist. NECK: Supple. CARDIOVASCULAR: S1, S2 heard. Rate and rhythm are regular. RESPIRATORY: Clear to auscultation. GASTROINTESTINAL: Abdomen is soft. MUSCULOSKELETAL: No tenderness, no edema. DERMATOLOGIC: No skin rash. NEUROLOGIC: Alert and awake and oriented x3. No focal neurologic deficits, moving all the extremiti es. PSYCHIATRIC: Mood and affect normal. LABORATORY DATA: Potassium is 4.3, BUN is 98, creatinine is 10.7. ASSESSMENT AND PLAN: 1. End-stage renal disease. We will continue on dialysis. The patient had dialysis today. We will continue on dialysis Wednesday, , and Wednesday. 2. Acidosis, much better. 3. Hyperkalemia, better. 4. Edema, controlled. 5. Hypoalbuminemia. 6. Anemia of end-stage renal disease. The plan is to continue on dialysis as tolerated. Case management follow up for outpatient dialysis placement and follow up with surgeon for an access placement and a PPD placed for outpatient dialysis . We will follow.
[2017-10-21] MEDS: HYDROcodone/Acetaminophen 5/325 mg Tablet PO PRN (21:46)
[2017-10-22] MEDS: Sodium Bicarbonate Tab 325 MG TAB PO SCH ×4 (05:32→21:50)
[2017-10-22] MEDS: Furosemide 100 MG/10 ML VIAL SLOW IVP SCH ×2 (05:33→15:50)
[2017-10-22] MEDS: HYDROcodone/Acetaminophen 5/325 mg Tablet PO PRN ×2 (06:06→21:51)
[2017-10-22 06:32] LABS: Anion Gap 15 mmol/L (10-20); BUN (Urea Nitrogen) 60 mg/dL (8.4-25.7); Calc. Creatinine Clearance 14 mL/min (70-130); Calcium 7.1 mg/dL (7.8-10.44); Carbon Dioxide 25 mmol/L (23-31); Chloride 105 mmol/L (98-107); Estimated GFR-MDRD 7
[2017-10-22] MEDS: Ferrous Sulfate 325 MG TAB PO SCH ×2 (09:00→16:09)
[2017-10-22] MEDS: Folic Acid/Vit B Comp W-C PO SCH (09:00)
[2017-10-22] MEDS: Heparin 5,000 UNITS/ML VIAL SC SCH ×3 (09:15→21:52)
[2017-10-22] MEDS ORDERED: Heparin 1,000 UNITS/ML VIAL ONE (11:11)
--- NOTE | 2017-10-22 12:03 | PRG ---
DATE OF SERVICE: 10/22/2017 DATE OF SUBJECTIVE: Mr. Farah today underwent a left arm fistulogram. He has a cephalic vein fistula from his proximal radial artery established many years ago. He has had progressive swelling of his left arm. He has clinically obstructive central circulation as he has prominent collaterals about th e periclavicular area. The patient has acknowledges this, but never saw me as an outpatient lavernein g this. Fistulogram obtained today left arm revealed innominate vein stenosis and FINISHING RANGE OPERATOR undertaken marino ating this. He has multiple collaterals about the cephalic vein confluence to the subclavian vein. The patient in addition had a contrast venogram right arm, noting patent central circulation right. ASSESSMENT AND PLAN: 1. 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 His iliac veins and femoral veins are patent, but has a very large co llateral vein and multiple retroperitoneal venous collaterals to compensate for his occluded inferior vena cava. 2. The patient has an innominate vein left high grade stenosis respond to FINISHING RANGE OPERATOR today. Durability of this is poor. Eventually, he may need a stent, but even with a stent, venous stenting has poor durab ility and these will eventually occlude. It is hoped that the FINISHING RANGE OPERATOR (percutaneous transluminal angiopl asty) today will help the outflow of the left arm and help left arm edema. There is also hope that d ialysis will get rid of excess fluid and edema may help the swelling, although his left arm swelling may not totally resolve and may recur in the future as innominate vein will restenosis more than like ly. 3. Intact central circulation right arm venous outflow, but veins are poor. The patient's dialysis access is complicated. Left arm AV fistula is patent and hopefully it can be accessed if the edema in his arm goes down. The durability of this access is poor and it is likely h e will suffer progressive arm swelling. It may get better and then get worse as he has recurrent inn ominate vein stenosis. There are no other interventions necessary, although he could undergo repeat fistulogram with percutaneous transluminal angioplasty and innominate vein to help the swelling in th e left arm, but eventually this will occlude. The patient may need dialysis access in the future. His right arm could be considered for dialysis a ccess. Ultrasound vein mapping suggests the basilic vein right may be patent, although contrast veno gram this morning revealed poor veins. If dialysis access is needed in the right arm, then, this cou ld be explored and perhaps initial fistula could be performed and he may very well need a basilic vei n transposition in the future if this turns out to be adequate. He is at risk of having to have a pr osthetic dialysis graft right arm which has poor long-term durability and requires statistically more radiological interventions or surgical interventions to maintain patency. As a last resort the patient could have a left or right thigh dialysis graft. He has enough collater als in his femoral iliac veins to maintain patency. I do not think he would suffer leg edema, althou gh prosthetic dialysis grafts in the thighs have a slightly increased risk of surgical infections, bu t they can have longer durability and could be performed as a last resort. At this point, the patient has a cuffed tunnel dialysis catheter, left femoral vein, a temporary dial ysis catheter right femoral vein and a functioning dialysis fistula left arm, although dialysis acces s left arm has been difficult due to the arm edema. At this point, would recommend dialyzing him today using his left femoral vein cuffed tunneled dialys is catheter to assure that this functionally works well. After that, then we could remove his right femoral vein catheter this weekend. Would recommend avoiding IV access and blood draws in his right arm. Would recommend attempting dialysis access using his left arm cephalic vein fistula next week. If this is successful, then we eventually could remove his left femoral vein cuffed tunnel dialysis catheter. In the future, if he needs another dialysis catheter. It should be placed in his right fe moral vein as this directly feeds the large collateral and may be more functional. If the left arm fistula cannot be accessed then consideration of the right arm fistula which may requ julieta a secondary transposition operation. If veins are inadequate on exploration he may need a right arm dialysis graft prosthetic. As a last resort, if upper extremity abscess cannot be obtained or ma intained, then he may in the future need a thigh dialysis graft. This has been discussed with the huey lo. I would recommend that he follow up with me in my office in 1-2 weeks once he is discharged. If he i s still in the hospital next week I will see him to see how dialysis access progress is being made an d discuss future options.
--- NOTE | 2017-10-22 13:19 | SPC ---
RIGHT UPPER EXTREMITY VENOGRAM SONOGRAPHIC GUIDED VENOUS ACCESS RIGHT UPPER EXTREMITY: FINDINGS: After explaining the procedure and answering all questions, the right upper extremity was prepped and draped in the usual sterile fashion. Sterile technique, buffered local anesthesia, sonographic leena nce, and a 22 gauge needle were used to carefully access a collateral vein near the expected location of the left basilic vein. Sonographic evaluation of the upper extremities shows extensive collateral s with very small cephalic, basilic, and brachial veins. A 4 Malian sheath was placed for serial imaging, confirming very small veins of the right upper arm. Extensive collateralization is apparent. A 5 Malian glide cath was placed for better opacification of the veins. Tip was placed at the level of the right axillary vein. The axillary, subclavian, and bra chiocephalic veins, and the superior vena cava were shown to be patent. Filling defect from the inter nal jugular vein may represent extension of clot or wash in of unopacified blood. Catheter was removed. Hemostatis us obtained using direct pressure. Patient tolerated the procedure w ell and was eventually returned in good condition. Fluoro time equals 1 minute. IMPRESSION: 1. The right subclavian, brachiocephalic veins, and superior vena cava are widely patent. The brachia l, cephalic, and basilic veins of the upper arm are very small with extensive collateralization of fl ow. Cause is not evident, although patient does report have received chemotherapy in the right arm, l ikely resulting in caustic injury to the veins. Findings were discussed with Dr. Reeves at the time of the exam. Code CR POS: JACKIE
--- NOTE | 2017-10-22 20:03 | PDOC.PN ---
- Subjective Encounter Start Date: 10/22/17 Encounter Start Time: 15:30 Patient seen and examined. No new complaints. No CP/SOB. s/p intervention for dialysis access followed by dialysis. No overnight events - Objective Resuscitation Status: Resuscitation Status FULL:Full Resuscitation MAR Reviewed: Yes Vital Signs & Weight: Vital Signs (12 hours) Temp Pulse Resp BP Pulse Ox 10/22/17 16:00 98.6 F 74 16 156/69 H 95 Weight Weight 227 lb 6.4 oz I&O: 10/21/17 10/22/17 10/23/17 06:59 06:59 06:59 Intake Total 1170 710 240 Output Total 3550 2050 Balance -2380 -1340 240 Result Diagrams: 10/23/17 04:45 10/23/17 04:45 EKG Reviewed by me: Yes (Tele SR) Phys Exam - Physical Examination Constitutional: NAD Respiratory: no wheezing, no rhonchi Cardiovascular: RRR, no rub Gastrointestinal: soft, non-tender, positive bowel sounds Musculoskeletal: edema present Neurological: non-focal Dx/Plan - Plan DVT proph w/heparin IMPRESSION: 1. JANEL on CKD 4/Volume overload - started on dialysis 2. Metabolic acidosis - on bicarb 3. Hyperkalemia - resolved 4, Obesity BMI 34.2 5. Chronic diastolic HF EF 40-45% with MR 6. Other issues per previous notes PLAN * CM working on outpt dialysis setup * Cont to monitor * Nephrology following * AM labs Review of Systems - Review of Systems Respiratory: negative: Cough, Dry, Shortness of Breath, Hemoptysis, SOB with Excertion, Pleuritic Pain, Sputum, Wheezing Cardiovascular: negative: Chest Pain, Palpitations, Orthopnea, Paroxysmal Noc. Dyspnea, Edema, Light Headedness - Medications/Allergies Allergies/Adverse Reactions: Allergies Allergy/AdvReac Type Severity Reaction Status Date / Time morphine Allergy Rash Verified 10/19/17 03:43 Medications: Current Medications Acetaminophen (Tylenol) 650 mg PO Q4H PRN PRN Reason: Headache/Fever or Pain Hydrocodone Bitart/Acetaminophen ([place] 5/325) 2 tab PO Q4H PRN PRN Reason: Moderate Pain (4-6) Last Admin: 10/22/17 06:06 Dose: 2 tab Hydrocodone Bitart/Acetaminophen ([place] 5/325) 1 tab PO Q4H PRN PRN Reason: Mild Pain (1-3) Clonidine (Catapres) 0.1 mg PO Q4H PRN PRN Reason: SBP>160 Epoetin Brian (Procrit) 10,000 units IVP MoWeFr@0900 [facility] Last Admin: 10/20/17 17:20 Dose: 10,000 units Ferrous Sulfate (Feosol) 325 mg PO BID-[facility] Last Admin: 10/22/17 16:09 Dose: 325 mg Furosemide (Lasix) 80 mg SLOW IVP 0600,1400 [facility] Last Admin: 10/22/17 15:50 Dose: Not Given Heparin Sodium (Porcine) (Heparin) 5,000 units SC TID [facility] Last Admin: 10/22/17 16:08 Dose: 5,000 units Hydralazine HCl (Apresoline) 10 mg SLOW IVP Q4H PRN PRN Reason: SBP>170 Metoprolol Succinate (Toprol Xl) 50 mg PO DAILY [facility] Last Admin: 10/22/17 16:07 Dose: 50 mg Ondansetron HCl (Zofran) 4 mg IVP Q6H PRN PRN Reason: Nausea/Vomiting Last Admin: 10/20/17 06:49 Dose: 4 mg Sodium Bicarbonate (Bicarbonate, Sodium) 1,300 mg PO 0300,0900,1500,2100 [facility] Last Admin: 10/22/17 16:07 Dose: 1,300 mg Sodium Chloride (Flush - Normal Saline) 10 ml IVF Q12HR [facility] Last Admin: 10/22/17 09:00 Dose: Not Given Sodium Chloride (Flush - Normal Saline) 10 ml IVF PRN PRN PRN Reason: Saline Flush Last Admin: 10/20/17 09:04 Dose: 10 ml Tuberculin PPD (Aplisol) 0.1 ml I-DERMAL ONE [facility] Stop: 10/24/17 10:31 Last Admin: 10/21/17 21:48 Dose: 0.1 ml Vitamin B Complex/Vit C/Folic Acid (Nephro-Lonny Tablet) 1 tab PO DAILY [facility] Last Admin: 10/22/17 09:00 Dose: Not Given
--- NOTE | 2017-10-22 22:51 | PRG ---
DATE OF SERVICE: 10/22/2017 NEPHROLOGY PROGRESS NOTE SUBJECTIVE: Patient was seen and examined at bedside and overnight events noted. Patient denies any shortness of breath or chest pain or palpitation. No history of nausea or vomiting or diarrhea or f ever or chills or cramps. OBJECTIVE: GENERAL: This is obese white male in no apparent distress. VITAL SIGNS: Temperature 98.6, pulse 74, respirations 16, blood pressure 156/69. HEENT: Atraumatic, normocephalic. Oral mucosa is moist. NECK: Supple. CARDIOVASCULAR: S1, S2 heard. Rate and rhythm regular. RESPIRATORY: Clear to auscultation. GASTROINTESTINAL: Abdomen is soft. MUSCULOSKELETAL: No tenderness. No edema. DERMATOLOGIC: No skin rash. NEUROLOGIC: Alert and awake and oriented x3. No focal neurologic deficits. Moving all the extremit ies. PSYCHIATRIC: Mood and affect normal. LABORATORY DATA: Potassium is 4.2, BUN is 60, creatinine is 7.8. ASSESSMENT AND PLAN: 1. End-stage renal disease, started on hemodialysis. We will continue on dialysis as tolerated. 2. Acidosis, much better. 3. Hyperkalemia, better. 4. Edema, controlled. 5. Hypoalbuminemia. 6. Anemia of end-stage renal disease, currently on Epogen. Overall, labs are looking much better. Continue on dialysis and follow with case management for outp atient placement.
[2017-10-23] MEDS: Epoetin (ESRD) 10,000 UNITS/ML VIAL IVP SCH (00:12)
[2017-10-23] MEDS: Sodium Bicarbonate Tab 325 MG TAB PO SCH ×4 (03:17→21:27)
[2017-10-23 05:13] LABS: #Lymphocytes 0.8 thou/uL (1.20-3.40); #Monocytes 0.4 thou/uL (0.11-0.59); #Neutrophils 2.4 thou/uL (1.40-6.50); %Basophils 0.5 % (0.0-1.0); %Eosinophils 0.3 % (0.0-10.0); %Lymphocytes 21.7 % (21.0-51.0); %Monocytes 10.7 % (0.0-10.0); Hematocrit 18.1 % (42.0-52.0); Red Blood Cell (RBC) Count 1.75 mill/uL (4.70-6.10); White Blood Cell (WBC) Count 3.6 thou/uL (4.8-10.8)
[2017-10-23 05:26] LABS: Anion Gap 13 mmol/L (10-20); BUN (Urea Nitrogen) 60 mg/dL (8.4-25.7); Calc. Creatinine Clearance 14 mL/min (70-130); Calcium 7.2 mg/dL (7.8-10.44); Carbon Dioxide 26 mmol/L (23-31); Chloride 103 mmol/L (98-107); Estimated GFR-MDRD 7
[2017-10-23] MEDS: Furosemide 100 MG/10 ML VIAL SLOW IVP SCH (05:28)
[2017-10-23] MEDS ORDERED: IRON SUCROSE COMPLEX 100 MG/5 ML SLOW IVP SCH (08:45)
[2017-10-23] MEDS ORDERED: Sodium Ferric Gluconate 250 MG in Sodium Chloride 0.9% 100 ML IVPB SCH (09:15)
[2017-10-23] MEDS ORDERED: Iron Sucrose Complex 100 MG in Sodium Chloride 0.9% 100 ML IVPB SCH (10:15)
[2017-10-23] MEDS ORDERED: Epoetin (ESRD) 20,000 UNITS/ML IVP SCH (10:15)
--- NOTE | 2017-10-23 12:32 | PDOC.PN ---
- Subjective Encounter Start Date: 10/23/17 Encounter Start Time: 12:31 Subjective: feels much better.no chest pain/SOB. - Objective Resuscitation Status: Resuscitation Status FULL:Full Resuscitation MAR Reviewed: Yes Vital Signs & Weight: Vital Signs (12 hours) Temp Pulse Resp BP BP Pulse Ox 10/23/17 08:24 98.5 F 64 18 149/60 H 96 10/23/17 04:00 98.4 F 74 20 163/72 H 93 L Weight Weight 225 lb 1.6 oz I&O: 10/22/17 10/23/17 10/24/17 06:59 06:59 06:59 Intake Total 710 960 Output Total 2050 350 Balance -1340 610 Result Diagrams: 10/23/17 04:45 10/23/17 04:45 Additional Labs: Laboratory Tests 10/18/17 10/18/17 10/18/17 20:42 20:42 20:42 Hgb 7.5 L Troponin I 0.050 H B-Natriuretic Peptide 1097.5 H 10/19/17 10/19/17 10/19/17 01:45 05:06 05:06 Hgb 6.9 L Troponin I 0.048 H 0.050 H B-Natriuretic Peptide EKG Reviewed by me: Yes (tele-NSR) Phys Exam - Physical Examination Constitutional: NAD seen in HD HEENT: PERRLA, moist MMs, sclera anicteric, oral pharynx no lesions Neck: no nodes, no JVD, supple, full ROM Respiratory: no wheezing, no rales, no rhonchi, clear to auscultation bilateral Cardiovascular: RRR, no significant murmur Gastrointestinal: soft, non-tender, no distention, positive bowel sounds Musculoskeletal: no edema, pulses present Neurological: non-focal, normal sensation, moves all 4 limbs Psychiatric: normal affect, A&O x 3 Skin: no rash Dx/Plan (1) Anemia in chronic kidney disease (CKD) Code(s): N18.9 - CHRONIC KIDNEY DISEASE, UNSPECIFIED; D63.1 - ANEMIA IN CHRONIC KIDNEY DISEASE Status: Deleted (2) Acute kidney injury superimposed on CKD Code(s): N17.9 - ACUTE KIDNEY FAILURE, UNSPECIFIED; N18.9 - CHRONIC KIDNEY DISEASE, UNSPECIFIED Status: Resolved Comment: HD initiated (3) High anion gap metabolic acidosis Code(s): E87.2 - ACIDOSIS Status: Resolved (4) Fluid overload Code(s): E87.70 - FLUID OVERLOAD, UNSPECIFIED Status: Resolved (5) Hyperkalemia Code(s): E87.5 - HYPERKALEMIA Status: Resolved (6) DM2 (diabetes mellitus, type 2) Status: Acute (7) HTN (hypertension) Code(s): I10 - ESSENTIAL (PRIMARY) HYPERTENSION Status: Acute (8) Troponin level elevated Code(s): R74.8 - ABNORMAL LEVELS OF OTHER SERUM ENZYMES Status: Acute Comment: likley due to JANEL (9) Pulmonary hypertension Code(s): I27.20 - PULMONARY HYPERTENSION, UNSPECIFIED Status: Chronic (10) Obesity (BMI 30-39.9) Code(s): E66.9 - OBESITY, UNSPECIFIED Status: Chronic (11) Moderate mitral regurgitation Code(s): I34.0 - NONRHEUMATIC MITRAL (VALVE) INSUFFICIENCY Status: Chronic (12) Moderate tricuspid regurgitation Code(s): I07.1 - RHEUMATIC TRICUSPID INSUFFICIENCY Status: Chronic (13) h/o [place] Status: Acute - Plan PT/OT, nephrology social worker, out of bed/ambulate Transfuse IV iron for low levels.Pt won't accept Blood products -: cont Epogen.HD per nephrology. -: Nephrostomy tube in place.OP urology f/u. -: Awaiting OP HD set up.plans to access fistula left arm before DC -: hemodynamically stable. check am labs.clinically better * . Review of Systems - Review of Systems Constitutional: negative: Fever, Chills, Sweats, Weakness, Malaise, Other Respiratory: negative: Cough, Dry, Shortness of Breath, Hemoptysis, SOB with Excertion, Pleuritic Pain, Sputum, Wheezing Cardiovascular: negative: Chest Pain, Palpitations, Orthopnea, Paroxysmal Noc. Dyspnea, Edema, Light Headedness, Other Gastrointestinal: negative: Nausea, Vomiting, Abdominal Pain, Diarrhea, Constipation, Melena, Hematochezia, Other Genitourinary: negative: Dysuria, Frequency, Incontinence, Hematuria, Retention , Other Musculoskeletal: negative: Neck Pain, Shoulder Pain, Arm Pain, Back Pain, Hand Pain, Leg Pain, Foot Pain, Other Neurological: negative: Weakness, Numbness, Incoordination, Change in Speech, Confusion, Seizures, Other - Medications/Allergies Allergies/Adverse Reactions: Allergies Allergy/AdvReac Type Severity Reaction Status Date / Time morphine Allergy Rash Verified 10/19/17 03:43 Medications: Current Medications Acetaminophen (Tylenol) 650 mg PO Q4H PRN PRN Reason: Headache/Fever or Pain Hydrocodone Bitart/Acetaminophen ([place] 5/325) 2 tab PO Q4H PRN PRN Reason: Moderate Pain (4-6) Last Admin: 10/22/17 06:06 Dose: 2 tab Hydrocodone Bitart/Acetaminophen ([place] 5/325) 1 tab PO Q4H PRN PRN Reason: Mild Pain (1-3) Last Admin: 10/22/17 21:51 Dose: 1 tab Clonidine (Catapres) 0.1 mg PO Q4H PRN PRN Reason: SBP>160 Epoetin Brian (Procrit) 10,000 units IVP MoWeFr@0900 [facility] Last Admin: 10/23/17 00:12 Dose: 10,000 units Epoetin Brian (Procrit) 20,000 units IVP 1015 [facility] Stop: 10/23/17 14:00 Ferrous Sulfate (Feosol) 325 mg PO BID-WM [facility] Last Admin: 10/22/17 16:09 Dose: 325 mg Hydralazine HCl (Apresoline) 10 mg SLOW IVP Q4H PRN PRN Reason: SBP>170 Ferric Sodium Gluconate Complex 125 mg/ Sodium Chloride 110 mls @ 110 mls/hr IVPB WILLCALL [facility] Metoprolol Succinate (Toprol Xl) 50 mg PO HS [facility] Ondansetron HCl (Zofran) 4 mg IVP Q6H PRN PRN Reason: Nausea/Vomiting Last Admin: 10/20/17 06:49 Dose: 4 mg Sodium Bicarbonate (Bicarbonate, Sodium) 1,300 mg PO 0300,0900,1500,2100 [facility] Last Admin: 10/23/17 03:17 Dose: 1,300 mg Sodium Chloride (Flush - Normal Saline) 10 ml IVF Q12HR [facility] Last Admin: 10/22/17 21:52 Dose: 10 ml Sodium Chloride (Flush - Normal Saline) 10 ml IVF PRN PRN PRN Reason: Saline Flush Last Admin: 10/20/17 09:04 Dose: 10 ml Tuberculin PPD (Aplisol) 0.1 ml I-DERMAL ONE [facility] Stop: 10/24/17 10:31 Last Admin: 10/21/17 21:48 Dose: 0.1 ml Vitamin B Complex/Vit C/Folic Acid (Nephro-Lonny Tablet) 1 tab PO DAILY [facility] Last Admin: 10/22/17 09:00 Dose: Not Given
[2017-10-23] MEDS: Ferrous Sulfate 325 MG TAB PO SCH ×2 (13:20→15:58)
[2017-10-23] MEDS: Folic Acid/Vit B Comp W-C PO SCH (13:20)
--- NOTE | 2017-10-23 13:21 | PRG ---
DATE OF SERVICE: 10/23/2017 SUBJECTIVE: Patient was seen and examined at bedside and overnight events noted. Patient denies any shortness of breath or chest pain or palpitation. No history of nausea or vomiting or diarrhea or f ever or chills or cramps. OBJECTIVE: GENERAL: This is an obese male in no apparent distress. VITAL SIGNS: Temperature 98.5, pulse 64, respiratory rate 18, blood pressure 163/72. HEENT: Atraumatic, normocephalic. Oral mucosa is moist. NECK: Supple CARDIOVASCULAR: S1, S2 heard. Rate and rhythm regular. RESPIRATORY: Clear to auscultation. GASTROINTESTINAL: Abdomen is soft. MUSCULOSKELETAL: No tenderness, no edema. DERMATOLOGIC: No skin rash. NEUROLOGIC: Alert and awake and oriented x3. No focal neurologic deficits. Moving all the extremit ies. PSYCHIATRIC: Mood and affect normal. LABORATORY DATA: Potassium is 4.0, BUN is 60, creatinine is 7.9 and hemoglobin 5.7. ASSESSMENT AND PLAN: 1. End-stage renal disease. Continue on hemodialysis. Patient was seen during dialysis. 2. Severe anemia. Patient refuses blood due to mormon reason and he is being Church. 3. Hyperkalemia, better. 4. Edema. 5. Acidosis. 6. Continue on dialysis for fluid removal. We will continue on Epogen 20,000 units with each dialys is and Venofer 100 mg IV. Check B12 and folate level and replace if needed. The patient is a Jehova h's Witness, refusing blood, we will follow. Patient understands the risk with anemia and dialysis.
[2017-10-24] MEDS: Sodium Bicarbonate Tab 325 MG TAB PO SCH ×4 (03:54→20:20)
[2017-10-24 04:52] LABS: Anion Gap 13 mmol/L (10-20); BUN (Urea Nitrogen) 53 mg/dL (8.4-25.7); Calc. Creatinine Clearance 14 mL/min (70-130); Calcium 7.6 mg/dL (7.8-10.44); Carbon Dioxide 27 mmol/L (23-31); Chloride 102 mmol/L (98-107); Estimated GFR-MDRD 7
[2017-10-24] MEDS: Ferrous Sulfate 325 MG TAB PO SCH ×2 (09:14→17:55)
[2017-10-24] MEDS: Folic Acid/Vit B Comp W-C PO SCH (09:15)
[2017-10-24] MEDS: hydrALAZINE 20 MG/ML VIAL SLOW IVP PRN (12:30)
--- NOTE | 2017-10-24 13:07 | PDOC.PN ---
- Subjective Encounter Start Date: 10/24/17 Encounter Start Time: 13:06 Subjective: no new complaints. -: reports that he has a swelling in left upper abdomen & had scan done -: will try to get results.no pain,nausea,vomiting - Objective Resuscitation Status: Resuscitation Status FULL:Full Resuscitation MAR Reviewed: Yes Vital Signs & Weight: Vital Signs (12 hours) Temp Pulse Resp BP BP Pulse Ox 10/24/17 12:25 99 F 76 16 175/81 H 93 L 10/24/17 09:13 98.4 F 70 18 140/93 H 94 L 10/24/17 08:45 98.4 F 70 18 94 L 10/24/17 04:00 98.3 F 69 17 170/74 H 92 L Weight Weight 223 lb 9.6 oz I&O: 10/23/17 10/24/17 10/25/17 06:59 06:59 06:59 Intake Total 960 2520 Output Total 350 2675 Balance 610 -155 Result Diagrams: 10/23/17 04:45 10/24/17 03:58 Phys Exam - Physical Examination Constitutional: NAD pale HEENT: PERRLA, moist MMs, sclera anicteric, oral pharynx no lesions, 2+ tonsils Neck: no nodes, no JVD, supple, full ROM Respiratory: no wheezing, no rales, no rhonchi, clear to auscultation bilateral Cardiovascular: RRR, no significant murmur, no rub, gallop Gastrointestinal: soft, non-tender, no distention, positive bowel sounds palpable mass LUQ.? spleen Musculoskeletal: no edema, pulses present Neurological: non-focal, normal sensation, moves all 4 limbs Psychiatric: normal affect, A&O x 3 Skin: no rash Dx/Plan (1) Acute kidney injury superimposed on CKD Code(s): N17.9 - ACUTE KIDNEY FAILURE, UNSPECIFIED; N18.9 - CHRONIC KIDNEY DISEASE, UNSPECIFIED Status: Resolved Comment: HD initiated (2) Anemia in chronic kidney disease (CKD) Code(s): N18.9 - CHRONIC KIDNEY DISEASE, UNSPECIFIED; D63.1 - ANEMIA IN CHRONIC KIDNEY DISEASE Status: Deleted Comment: Pt can not take blood producta due to voodoo reasons (3) High anion gap metabolic acidosis Code(s): E87.2 - ACIDOSIS Status: Resolved (4) Fluid overload Code(s): E87.70 - FLUID OVERLOAD, UNSPECIFIED Status: Resolved (5) Hyperkalemia Code(s): E87.5 - HYPERKALEMIA Status: Resolved (6) DM2 (diabetes mellitus, type 2) Status: Acute (7) HTN (hypertension) Code(s): I10 - ESSENTIAL (PRIMARY) HYPERTENSION Status: Acute (8) Troponin level elevated Code(s): R74.8 - ABNORMAL LEVELS OF OTHER SERUM ENZYMES Status: Acute Comment: likley due to JANEL (9) Pulmonary hypertension Code(s): I27.20 - PULMONARY HYPERTENSION, UNSPECIFIED Status: Chronic (10) Obesity (BMI 30-39.9) Code(s): E66.9 - OBESITY, UNSPECIFIED Status: Chronic (11) Moderate mitral regurgitation Code(s): I34.0 - NONRHEUMATIC MITRAL (VALVE) INSUFFICIENCY Status: Chronic (12) Moderate tricuspid regurgitation Code(s): I07.1 - RHEUMATIC TRICUSPID INSUFFICIENCY Status: Chronic (13) h/o [place] Status: Acute (14) Abdominal mass, LUQ (left upper quadrant) Code(s): R19.02 - LEFT UPPER QUADRANT ABDOMINAL SWELLING, MASS AND LUMP Status : Chronic - Plan PT/OT, out of bed/ambulate, DVT proph w/SCDs HD per nephrology.Acidosis,electrolyte abnormalities improved. -: IV iron given yesterday.cont Epogen/procrit.monitor. -: will get records from recent Abdominal scan from Dr. Cowart office -: hemodynamically stable. will transfer to medical * . Review of Systems - Review of Systems Constitutional: negative: Fever, Chills, Sweats, Weakness, Malaise, Other Respiratory: negative: Cough, Dry, Shortness of Breath, Hemoptysis, SOB with Excertion, Pleuritic Pain, Sputum, Wheezing Cardiovascular: negative: Chest Pain, Palpitations, Orthopnea, Paroxysmal Noc. Dyspnea, Edema, Light Headedness, Other Gastrointestinal: negative: Nausea, Vomiting, Abdominal Pain, Diarrhea, Constipation, Melena, Hematochezia, Other Genitourinary: negative: Dysuria, Frequency, Incontinence, Hematuria, Retention , Other Musculoskeletal: negative: Neck Pain, Shoulder Pain, Arm Pain, Back Pain, Hand Pain, Leg Pain, Foot Pain, Other Neurological: negative: Weakness, Numbness, Incoordination, Change in Speech, Confusion, Seizures, Other - Medications/Allergies Allergies/Adverse Reactions: Allergies Allergy/AdvReac Type Severity Reaction Status Date / Time morphine Allergy Rash Verified 10/19/17 03:43 Medications: Current Medications Acetaminophen (Tylenol) 650 mg PO Q4H PRN PRN Reason: Headache/Fever or Pain Hydrocodone Bitart/Acetaminophen ([place] 5/325) 2 tab PO Q4H PRN PRN Reason: Moderate Pain (4-6) Last Admin: 10/22/17 06:06 Dose: 2 tab Hydrocodone Bitart/Acetaminophen ([place] 5/325) 1 tab PO Q4H PRN PRN Reason: Mild Pain (1-3) Last Admin: 10/22/17 21:51 Dose: 1 tab Clonidine (Catapres) 0.1 mg PO Q4H PRN PRN Reason: SBP>160 Epoetin Brian (Procrit) 12,000 units IVP MoWeFr@0900 [facility] Ferrous Sulfate (Feosol) 325 mg PO BID-WM [facility] Last Admin: 10/24/17 09:14 Dose: 325 mg Hydralazine HCl (Apresoline) 10 mg SLOW IVP Q4H PRN PRN Reason: SBP>170 Last Admin: 10/24/17 12:30 Dose: 10 mg Ferric Sodium Gluconate Complex 125 mg/ Sodium Chloride 110 mls @ 110 mls/hr IVPB WILLCALL [facility] Metoprolol Succinate (Toprol Xl) 50 mg PO HS [facility] Last Admin: 10/23/17 21:27 Dose: 50 mg Ondansetron HCl (Zofran) 4 mg IVP Q6H PRN PRN Reason: Nausea/Vomiting Last Admin: 10/20/17 06:49 Dose: 4 mg Sodium Bicarbonate (Bicarbonate, Sodium) 1,300 mg PO 0300,0900,1500,2100 [facility] Last Admin: 10/24/17 09:15 Dose: 1,300 mg Sodium Chloride (Flush - Normal Saline) 10 ml IVF Q12HR [facility] Last Admin: 10/24/17 09:15 Dose: 10 ml Sodium Chloride (Flush - Normal Saline) 10 ml IVF PRN PRN PRN Reason: Saline Flush Last Admin: 10/20/17 09:04 Dose: 10 ml Vitamin B Complex/Vit C/Folic Acid (Nephro-Lonny Tablet) 1 tab PO DAILY N[facility] Last Admin: 10/24/17 09:15 Dose: 1 tab
--- NOTE | 2017-10-24 13:17 | PRG ---
DATE OF SERVICE: 10/24/2017 SUBJECTIVE: Patient was seen and examined at bedside and overnight events noted. Patient denies any shortness of breath or chest pain or palpitation. No history of nausea or vomiting or diarrhea or f ever or chills or cramps. OBJECTIVE: GENERAL: This is a well-built obese male in no apparent distress. VITAL SIGNS: Temperature 98.4, pulse 70, respiratory rate 18, blood pressure 140/93. HEENT: Atraumatic, normocephalic. Oral mucosa is moist. NECK: Supple. CARDIOVASCULAR: S1, S2 heard. Rate and rhythm regular. RESPIRATORY: Clear to auscultation. GASTROINTESTINAL: Abdomen is soft. MUSCULOSKELETAL: No tenderness, no edema. DERMATOLOGIC: No skin rash. NEUROLOGIC: Alert and awake and oriented x3. No focal neurologic deficits. Moving all the extremit ies. PSYCHIATRIC: Mood and affect normal. LABORATORY DATA: Creatinine is 7.7. ASSESSMENT AND PLAN: 1. End-stage renal disease. We will continue on hemodialysis. Plan is to have 2 hours of dialysis tomorrow. Continue on dialysis on Wednesday, , and Wednesday. 2. Anemia of severe. B12 and folate level is normal. The patient refuses blood due to yarsani re ason. 3. Hyperkalemia, better. 4. Edema. 5. Acidosis. We will have dialysis tomorrow for ultrafiltration and continue on dialysis, TTS. Follow with rodney denise for outpatient placement.
[2017-10-24] MEDS ORDERED: Heparin 10,000 UNITS/1 ML VIAL ONE (17:35)
[2017-10-24] MEDS: HYDROcodone/Acetaminophen 5/325 mg Tablet PO PRN (20:19)
[2017-10-25] MEDS: Sodium Bicarbonate Tab 325 MG TAB PO SCH ×4 (03:07→21:25)
[2017-10-25 04:38] LABS: Hematocrit 16.4 % (42.0-52.0)
[2017-10-25 04:42] LABS: Anion Gap 14 mmol/L (10-20); BUN (Urea Nitrogen) 55 mg/dL (8.4-25.7); Calc. Creatinine Clearance 13 mL/min (70-130); Calcium 7.5 mg/dL (7.8-10.44); Carbon Dioxide 26 mmol/L (23-31); Chloride 102 mmol/L (98-107); Estimated GFR-MDRD 7
[2017-10-25] MEDS: hydrALAZINE 20 MG/ML VIAL SLOW IVP PRN (05:19)
--- NOTE | 2017-10-25 07:39 | SPC ---
LEFT UPPER EXTREMITY DIALYSIS FISTULOGRAM PERCUTANEOUS BALLOON ANGIOPLASTY LEFT CEPHALIC VEIN FISTULA OUTFLOW PERCUTANEOUS ANGIOPLASTY LEFT BRACHIOCEPHALIC VEIN SONOGRAPHIC-GUIDED ACCESS LEFT UPPER EXTREMITY DIALYISIS FISTULA: HISTORY: Renal failure. Left arm swelling. Poor function of dialysis fistula. FINDINGS: After explaining the procedure and answering all questions, the left upper extremity was prepped and draped in the usual sterile fashion. Sterile technique, buffered local anesthesia, sonographic leena nce, and a 22 gauge needle were used to carefully access the left cephalic fistula just above the lev el of the elbow. A 4 Greek sheath was placed for serial imaging, showing extensive collateral flow from the left cephalic vein. There is some irregular narrowing at the level at the level of the uppe r humerus. Attempt to reflux the arterial anastomosis was unsuccessful due to extensive collateraliz ation and vigorous arterial inflow. A 5 Greek blind catheter was carefully advanced over a 0.035 Gl idewire to the central cephalic vein for contrast opacification, revealing an area of significant corey rowing centrally. There is also severe narrowing of the brachiocephalic vein. A 6 Greek sheath was placed, and a 6 mm x 4 cm angioplasty balloon was carefully advanced to the donald tral aspect of the cephalic vein at the area of narrowing. Multiple balloon dilatations were perform ed, achieving full balloon profile and significantly improving flow. A 10 mm x 4 cm balloon was then carefully advanced to the area of narrowing at the left brachiocephal ic vein. Full balloon profile was achieved with multiple dilatations, relieving the stricture. Repe at imaging showed full caliber of the left brachiocephalic vein. There was renewed narrowing of the central aspect of the left cephalic vein. An 8 mm x 4 cm balloon catheter was then carefully placed at the level of recurrent cephalic vein narrowing. Full balloon profile was easily achieved. Repeat imaging showed persistent marked collateral flow around the central cephalic vein. These markedly d ilated collaterals are felt to result in collapse and decompression of the central left cephalic vein despite ongoing stricture. The sheath was removed and hemostasis was obtained using direct pressure. The patient tolerated the procedure well and he was eventually returned in improved condition. IMPRESSION: Patent left upper extremity dialysis fistula. Successful balloon angioplasty of areas of stenosis at the central aspect of the left cephalic vein and the left brachiocephalic vein. Findings were discussed with Dr. Reeves at the time of the exam. CODE CR POS: JACKIE
[2017-10-25] MEDS ORDERED: Sodium Ferric Gluconate 125 MG in Sodium Chloride 0.9% 100 ML IVPB SCH (09:00)
[2017-10-25] MEDS ORDERED: Heparin 10,000 UNITS/ 10 ML VIAL ONE (10:00)
[2017-10-25] MEDS: Folic Acid/Vit B Comp W-C PO SCH (10:13)
[2017-10-25] MEDS: Ferrous Sulfate 325 MG TAB PO SCH ×2 (10:13→17:43)
[2017-10-25] MEDS: Epoetin (ESRD) 20,000 UNITS/ML IVP SCH ×2 (10:24→17:44)
--- NOTE | 2017-10-25 11:38 | PRG ---
DATE OF SERVICE: 10/25/2017 SUBJECTIVE: This 62-year-old gentleman being seen for end-stage renal disease. Patient denies any n ausea, vomiting or chest pain. PHYSICAL EXAMINATION: GENERAL: Patient is awake, alert. VITAL SIGNS: Afebrile, pulse 64, breathing at 16, blood pressure 160/77. OBJECTIVE: See above. Awake, alert, in no acute distress. GENERAL APPEARANCE AND MENTAL STATUS: Fair. HEAD/NECK: Normocephalic. Atraumatic. EYES: EOMI. No deformity. EARS: Clear. No ulcers. NOSE: Intact. No lesions. MOUTH: Clear. No discharge. THROAT: Clear. No exudate. LUNGS: Clear. No crackles. CARDIAC: S1, S2. No rub. ABDOMEN: Benign. BS+. GENITALIA/RECTUM: Ruby absent. BACK/EXTREMITIES: Edema 0+ Ulcer- NEUROLOGICAL: Alert and motor intact. SKIN: Rash- Bruise- LYMPHATICS: Edema- Ulcer- LABORATORY: Hemoglobin was 5.2, creatinine 8.2. ASSESSMENT AND RECOMMENDATIONS: 1. Stage 6 chronic kidney disease. We will plan dialysis. 2. Anemia. The patient has refused transfusion. Continue Epogen. Patient is a Jehovah Witness. 3. Hypertension, stable. 4. Medications based on glomerular filtration rate are appropriate. 5. Hyperkalemia, stable.
--- NOTE | 2017-10-25 15:39 | PDOC.PN ---
- Subjective Encounter Start Date: 10/25/17 Encounter Start Time: 15:37 Subjective: feels Ok. no weakness/dizziness - Objective Resuscitation Status: Resuscitation Status FULL:Full Resuscitation MAR Reviewed: Yes Vital Signs & Weight: Vital Signs (12 hours) Temp Pulse Resp BP BP BP Pulse Ox 10/25/17 11:25 98.5 F 82 20 179/82 H 97 10/25/17 08:15 98.1 F 74 16 178/85 H 94 L 10/25/17 06:00 162/77 H 10/25/17 05:19 76 176/82 H 10/25/17 04:00 97.4 F L 76 18 170/78 H 96 Weight Weight 245 lb 5.992 oz I&O: 10/24/17 10/25/17 10/26/17 06:59 06:59 06:59 Intake Total 2520 850 Output Total 2675 1100 Balance -155 -250 Result Diagrams: 10/25/17 03:25 10/25/17 03:25 Phys Exam - Physical Examination Constitutional: NAD HEENT: PERRLA, moist MMs, sclera anicteric, oral pharynx no lesions Neck: no nodes, no JVD, supple, full ROM Respiratory: no wheezing, no rales, no rhonchi, clear to auscultation bilateral Cardiovascular: RRR, no significant murmur, no rub, gallop Gastrointestinal: soft, non-tender, no distention, positive bowel sounds Musculoskeletal: no edema, pulses present Neurological: non-focal, normal sensation, moves all 4 limbs Psychiatric: normal affect, A&O x 3 Skin: no rash Dx/Plan (1) Acute kidney injury superimposed on CKD Code(s): N17.9 - ACUTE KIDNEY FAILURE, UNSPECIFIED; N18.9 - CHRONIC KIDNEY DISEASE, UNSPECIFIED Status: Resolved Comment: HD initiated (2) Anemia in chronic kidney disease (CKD) Code(s): N18.9 - CHRONIC KIDNEY DISEASE, UNSPECIFIED; D63.1 - ANEMIA IN CHRONIC KIDNEY DISEASE Status: Deleted Comment: Pt can not take blood producta due to jainism reasons (3) High anion gap metabolic acidosis Code(s): E87.2 - ACIDOSIS Status: Resolved (4) Fluid overload Code(s): E87.70 - FLUID OVERLOAD, UNSPECIFIED Status: Resolved (5) Hyperkalemia Code(s): E87.5 - HYPERKALEMIA Status: Resolved (6) DM2 (diabetes mellitus, type 2) Status: Acute (7) HTN (hypertension) Code(s): I10 - ESSENTIAL (PRIMARY) HYPERTENSION Status: Acute (8) Troponin level elevated Code(s): R74.8 - ABNORMAL LEVELS OF OTHER SERUM ENZYMES Status: Acute Comment: likley due to JANEL (9) Pulmonary hypertension Code(s): I27.20 - PULMONARY HYPERTENSION, UNSPECIFIED Status: Chronic (10) Obesity (BMI 30-39.9) Code(s): E66.9 - OBESITY, UNSPECIFIED Status: Chronic (11) Moderate mitral regurgitation Code(s): I34.0 - NONRHEUMATIC MITRAL (VALVE) INSUFFICIENCY Status: Chronic (12) Moderate tricuspid regurgitation Code(s): I07.1 - RHEUMATIC TRICUSPID INSUFFICIENCY Status: Chronic (13) h/o [place] Status: Chronic (14) Abdominal mass, LUQ (left upper quadrant) Code(s): R19.02 - LEFT UPPER QUADRANT ABDOMINAL SWELLING, MASS AND LUMP Status : Chronic Comment: Left renal Cyst on US done as an Outpatient.measures 20 [facility] - Plan DVT proph w/SCDs cont HD per nephrology.Pt continues to refuse blood transfusion -: cont procrit for now w HD. IV iron given as well.monitor. -: Renal Fx stable. -: OP HD set up in process. -: encouraged to f/u w Oncology as an OP. * . Review of Systems - Review of Systems Constitutional: negative: Fever, Chills, Sweats, Weakness, Malaise, Other ENT: negative: Ear Pain, Ear Discharge, Nose Pain, Nose Discharge, Nose Congestion, Mouth Pain, Mouth Swelling, Throat Pain, Throat Swelling, Other Respiratory: negative: Cough, Dry, Shortness of Breath, Hemoptysis, SOB with Excertion, Pleuritic Pain, Sputum, Wheezing Cardiovascular: negative: Chest Pain, Palpitations, Orthopnea, Paroxysmal Noc. Dyspnea, Edema, Light Headedness, Other Gastrointestinal: negative: Nausea, Vomiting, Abdominal Pain, Diarrhea, Constipation, Melena, Hematochezia, Other Genitourinary: negative: Dysuria, Frequency, Incontinence, Hematuria, Retention , Other Musculoskeletal: negative: Neck Pain, Shoulder Pain, Arm Pain, Back Pain, Hand Pain, Leg Pain, Foot Pain, Other Neurological: negative: Weakness, Numbness, Incoordination, Change in Speech, Confusion, Seizures, Other - Medications/Allergies Allergies/Adverse Reactions: Allergies Allergy/AdvReac Type Severity Reaction Status Date / Time morphine Allergy Rash Verified 10/19/17 03:43 Medications: Current Medications Acetaminophen (Tylenol) 650 mg PO Q4H PRN PRN Reason: Headache/Fever or Pain Hydrocodone Bitart/Acetaminophen ([place] 5/325) 2 tab PO Q4H PRN PRN Reason: Moderate Pain (4-6) Last Admin: 10/22/17 06:06 Dose: 2 tab Hydrocodone Bitart/Acetaminophen ([place] 5/325) 1 tab PO Q4H PRN PRN Reason: Mild Pain (1-3) Last Admin: 10/24/17 20:19 Dose: 1 tab Clonidine (Catapres) 0.1 mg PO Q4H PRN PRN Reason: SBP>160 Epoetin Brian (Procrit) 12,000 units IVP MoWeFr@0900 [facility] Last Admin: 10/25/17 10:24 Dose: Not Given Ferrous Sulfate (Feosol) 325 mg PO BID-[facility] Last Admin: 10/25/17 10:13 Dose: 325 mg Hydralazine HCl (Apresoline) 10 mg SLOW IVP Q4H PRN PRN Reason: SBP>170 Last Admin: 10/25/17 05:19 Dose: 10 mg Ferric Sodium Gluconate Complex 125 mg/ Sodium Chloride 110 mls @ 110 mls/hr IVPB WILLCALL [facility] Metoprolol Succinate (Toprol Xl) 50 mg PO HS [facility] Last Admin: 10/24/17 20:21 Dose: 50 mg Ondansetron HCl (Zofran) 4 mg IVP Q6H PRN PRN Reason: Nausea/Vomiting Last Admin: 10/20/17 06:49 Dose: 4 mg Sodium Bicarbonate (Bicarbonate, Sodium) 1,300 mg PO 0300,0900,1500,2100 [facility] Last Admin: 10/25/17 10:13 Dose: 1,300 mg Sodium Chloride (Flush - Normal Saline) 10 ml IVF Q12HR [facility] Last Admin: 10/25/17 10:14 Dose: 10 ml Sodium Chloride (Flush - Normal Saline) 10 ml IVF PRN PRN PRN Reason: Saline Flush Last Admin: 10/20/17 09:04 Dose: 10 ml Vitamin B Complex/Vit C/Folic Acid (Nephro-Lonny Tablet) 1 tab PO DAILY N[facility] Last Admin: 10/25/17 10:13 Dose: 1 tab
--- NOTE | 2017-10-25 19:15 | PRG ---
DATE OF SERVICE: 10/25/2017 Mr. Farah over the weekend has successfully utilized his left femoral vein dialysis catheter for dialy sis. This morning, they utilized his left upper arm cephalic vein fistula for dialysis. His left ar m edema has improved, but will no resolved. 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 I would recommend removal of his right g roin temporary Trialysis catheter prior to discharge. I would recommend patient be discharged with a left femoral vein cuffed tunneled dialysis catheter and if they repeatedly successfully access his l eft upper arm fistula, left femoral vein cuffed tunneled dialysis catheter could be removed as an out patient in the next 2 weeks. We will await arrangement of outpatient dialysis. Patient could have a right arm fistula or graft, but will await a fistula or graft. Contrast venogram right reveals a ve nous structure small unlikely to have a primary fistula on the right and most likely will need a pros thetic graft if we have to utilize his right arm.
[2017-10-25] MEDS: HYDROcodone/Acetaminophen 5/325 mg Tablet PO PRN (21:24)
[2017-10-26] MEDS: hydrALAZINE 20 MG/ML VIAL SLOW IVP PRN (03:14)
[2017-10-26] MEDS: Sodium Bicarbonate Tab 325 MG TAB PO SCH ×3 (03:14→14:19)
[2017-10-26] MEDS: Ferrous Sulfate 325 MG TAB PO SCH (08:14)
[2017-10-26] MEDS: Folic Acid/Vit B Comp W-C PO SCH (09:06)
[2017-10-26] MEDS ORDERED: Lisinopril 10 MG TAB PO SCH (09:16)
[2017-10-26] MEDS ORDERED: Epoetin (ESRD) 10,000 UNITS/ML VIAL IVP SCH ×2 (09:30→12:15)
[2017-10-26] MEDS ORDERED: Heparin 10,000 UNITS/ 10 ML VIAL ONE (10:00)
[2017-10-26] MEDS ORDERED: Activase 2 MG VIAL CATH SCH (10:15)
--- NOTE | 2017-10-26 11:37 | PRG ---
DATE OF SERVICE: 10/26/2017 SUBJECTIVE: This is a 62-year-old gentleman being seen for end-stage renal disease. The patient den ies any nausea, vomiting, or chest pain. PHYSICAL EXAMINATION: GENERAL: Patient is awake, alert. VITAL SIGNS: Afebrile, pulse 70, breathing at 16, blood pressure 152/70. OBJECTIVE: See above. Awake, alert, in no acute distress. GENERAL APPEARANCE AND MENTAL STATUS: Fair. HEAD/NECK: Normocephalic. Atraumatic. EYES: EOMI. No deformity. EARS: Clear. No ulcers. NOSE: Intact. No lesions. MOUTH: Clear. No discharge. THROAT: Clear. No exudate. LUNGS: Clear. No crackles. CARDIAC: S1, S2. No rub. ABDOMEN: Benign. BS+. GENITALIA/RECTUM: Ruby absent. BACK/EXTREMITIES: Edema 0+ Ulcer- NEUROLOGICAL: Alert and motor intact. SKIN: Rash- Bruise- LYMPHATICS: Edema- Ulcer- LABORATORY DATA: Hemoglobin 5.2, potassium is 3.9. ASSESSMENT AND RECOMMENDATIONS: 1. Stage 6 chronic kidney disease. Continue hemodialysis. 2. Hypertension, stable. 3. Anemia, stable, diffuse, refused transfusion.
[2017-10-26] MEDS ORDERED: Epoetin (ESRD) 10,000 UNITS/ML VIAL SC SCH (12:45)
--- NOTE | 2017-10-26 14:02 | PDOC.PN ---
- Subjective Encounter Start Date: 10/26/17 Encounter Start Time: 14:01 Subjective: feels good and wants to go home -: no new complaints. - Objective Resuscitation Status: Resuscitation Status FULL:Full Resuscitation MAR Reviewed: Yes Vital Signs & Weight: Vital Signs (12 hours) Temp Pulse Resp BP BP Pulse Ox 10/26/17 12:30 168/101 H 10/26/17 12:00 99.1 F 82 20 168/101 H 97 10/26/17 04:46 98.3 F 78 20 174/66 H 97 10/26/17 03:14 77 174/66 H Weight Weight 3.915 oz I&O: 10/25/17 10/26/17 10/27/17 06:59 06:59 06:59 Intake Total 850 400 Output Total 1100 4025 Balance -250 -1716 Result Diagrams: 10/25/17 03:25 10/25/17 03:25 Phys Exam - Physical Examination Constitutional: NAD HEENT: PERRLA, moist MMs, sclera anicteric, oral pharynx no lesions Neck: no nodes, no JVD, supple, full ROM Respiratory: no wheezing, no rales, no rhonchi, clear to auscultation bilateral Cardiovascular: RRR, no significant murmur Gastrointestinal: soft, non-tender, no distention, positive bowel sounds Musculoskeletal: no edema, pulses present Neurological: non-focal, normal sensation, moves all 4 limbs Psychiatric: normal affect, A&O x 3 Skin: no rash Dx/Plan (1) Acute kidney injury superimposed on CKD Code(s): N17.9 - ACUTE KIDNEY FAILURE, UNSPECIFIED; N18.9 - CHRONIC KIDNEY DISEASE, UNSPECIFIED Status: Resolved Comment: HD initiated (2) Anemia in chronic kidney disease (CKD) Code(s): N18.9 - CHRONIC KIDNEY DISEASE, UNSPECIFIED; D63.1 - ANEMIA IN CHRONIC KIDNEY DISEASE Status: Deleted Comment: Pt can not take blood producta due to taoism reasons (3) High anion gap metabolic acidosis Code(s): E87.2 - ACIDOSIS Status: Resolved (4) Fluid overload Code(s): E87.70 - FLUID OVERLOAD, UNSPECIFIED Status: Resolved (5) Hyperkalemia Code(s): E87.5 - HYPERKALEMIA Status: Resolved (6) DM2 (diabetes mellitus, type 2) Status: Acute (7) HTN (hypertension) Code(s): I10 - ESSENTIAL (PRIMARY) HYPERTENSION Status: Acute (8) Troponin level elevated Code(s): R74.8 - ABNORMAL LEVELS OF OTHER SERUM ENZYMES Status: Acute Comment: likley due to JANEL (9) Pulmonary hypertension Code(s): I27.20 - PULMONARY HYPERTENSION, UNSPECIFIED Status: Chronic (10) Obesity (BMI 30-39.9) Code(s): E66.9 - OBESITY, UNSPECIFIED Status: Chronic (11) Moderate mitral regurgitation Code(s): I34.0 - NONRHEUMATIC MITRAL (VALVE) INSUFFICIENCY Status: Chronic (12) Moderate tricuspid regurgitation Code(s): I07.1 - RHEUMATIC TRICUSPID INSUFFICIENCY Status: Chronic (13) h/o Seminoma Status: Chronic (14) Abdominal mass, LUQ (left upper quadrant) Code(s): R19.02 - LEFT UPPER QUADRANT ABDOMINAL SWELLING, MASS AND LUMP Status : Chronic Comment: Left renal Cyst on US done as an Outpatient.measures 20 cms - Plan out of bed/ambulate, DVT proph w/SCDs discussed w Nephrology & CM.Pt all set for HD for . -: will DC home w OP f/u for HD. -: instructed to f/u w oncology as an OP for renal cystic lesion -: hemodynamically stable * . Review of Systems - Review of Systems Constitutional: negative: Fever, Chills, Sweats, Weakness, Malaise, Other Respiratory: negative: Cough, Dry, Shortness of Breath, Hemoptysis, SOB with Excertion, Pleuritic Pain, Sputum, Wheezing Cardiovascular: negative: Chest Pain, Palpitations, Orthopnea, Paroxysmal Noc. Dyspnea, Edema, Light Headedness, Other Gastrointestinal: negative: Nausea, Vomiting, Abdominal Pain, Diarrhea, Constipation, Melena, Hematochezia, Other Genitourinary: negative: Dysuria, Frequency, Incontinence, Hematuria, Retention , Other Musculoskeletal: negative: Neck Pain, Shoulder Pain, Arm Pain, Back Pain, Hand Pain, Leg Pain, Foot Pain, Other Neurological: negative: Weakness, Numbness, Incoordination, Change in Speech, Confusion, Seizures, Other - Medications/Allergies Allergies/Adverse Reactions: Allergies Allergy/AdvReac Type Severity Reaction Status Date / Time morphine Allergy Rash Verified 10/19/17 03:43 Medications: Current Medications Acetaminophen (Tylenol) 650 mg PO Q4H PRN PRN Reason: Headache/Fever or Pain Hydrocodone Bitart/Acetaminophen (Jelm 5/325) 2 tab PO Q4H PRN PRN Reason: Moderate Pain (4-6) Last Admin: 10/22/17 06:06 Dose: 2 tab Hydrocodone Bitart/Acetaminophen (Jelm 5/325) 1 tab PO Q4H PRN PRN Reason: Mild Pain (1-3) Last Admin: 10/25/17 21:24 Dose: 1 tab Clonidine (Catapres) 0.1 mg PO Q4H PRN PRN Reason: SBP>160 Epoetin Brian (Procrit) 12,000 units IVP [id number] [facility] Last Admin: 10/25/17 17:44 Dose: 12,000 units Epoetin Brian (Procrit) 10,000 units SC NOW [facility] Stop: 10/26/17 14:45 Ferrous Sulfate (Feosol) 325 mg PO BID-[facility] Last Admin: 10/26/17 08:14 Dose: Not Given Hydralazine HCl (Apresoline) 10 mg SLOW IVP Q4H PRN PRN Reason: SBP>170 Last Admin: 10/26/17 03:14 Dose: 10 mg Ferric Sodium Gluconate Complex 125 mg/ Sodium Chloride 110 mls @ 110 mls/hr IVPB [facility] Lisinopril (Zestril) 5 mg PO DAILY [facility] Metoprolol Succinate (Toprol Xl) 50 mg PO HS [facility] Last Admin: 10/25/17 21:23 Dose: 50 mg Ondansetron HCl (Zofran) 4 mg IVP Q6H PRN PRN Reason: Nausea/Vomiting Last Admin: 10/20/17 06:49 Dose: 4 mg Sodium Bicarbonate (Bicarbonate, Sodium) 1,300 mg PO 0300,0900,1500,2100 [facility] Last Admin: 10/26/17 09:07 Dose: Not Given Sodium Chloride (Flush - Normal Saline) 10 ml IVF Q12HR [facility] Last Admin: 10/26/17 09:07 Dose: Not Given Sodium Chloride (Flush - Normal Saline) 10 ml IVF PRN PRN PRN Reason: Saline Flush Last Admin: 10/20/17 09:04 Dose: 10 ml Vitamin B Complex/Vit C/Folic Acid (Nephro-Lonny Tablet) 1 tab PO DAILY NAN Last Admin: 10/26/17 09:06 Dose: Not Given
[2017-10-26 17:06] VITALS: BP 158/96; TEMP 98.9
--- NOTE | 2017-10-27 04:18 | DIS ---
DATE OF ADMISSION: 10/19/2017 DATE OF DISCHARGE: 10/26/2017 CONDITION AT THE TIME OF DISCHARGE: Stable and improved. DISCHARGE DIAGNOSES: 1. Acute on chronic kidney insufficiency. It started on hemodialysis this admission. 2. Anemia of chronic kidney disease. The patient cannot accept any blood transfusion due to [facility] reasons. 3. High-anion gap metabolic acidosis and hyperkalemia due to acute renal insufficiency, resolved. 4. Fluid overload due to acute renal insufficiency: resolved. 5. Diabetes mellitus, type 2. 6. Hypertension. 7. Elevated troponin likely secondary to demand ischemia. 8. Pulmonary hypertension and tricuspid and mitral regurgitation on echocardiogram. 9. Morbid obesity with a BMI of 30-39.9. 10. 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 11. Left-sided renal cyst. DISCHARGE MEDICATIONS: Include [place] as needed, Ambien 5 mg at bedtime as needed, metoprolol succina te 50 mg daily. New medication, lisinopril 5 mg daily. PRIMARY CARE PHYSICIAN: Dr. Deandre Cota. DISCHARGE FOLLOWUP: 1. Nephrology, Dr. Day. 2. General Surgery, Dr. Reeves. PROCEDURES DONE IN THE HOSPITAL: Include, 1. Dialysis access placement. 2. Hemodialysis with multiple rounds. CONSULTATIONS INHOUSE: Include, 1. Nephrology, Dr. Day. 2. General Surgery, Dr. Reeves. HISTORY OF PRESENTING ILLNESS: Mr. Farah is a pleasant 62-year-old male with known history of chronic kidney disease, who was stopped dialysis about 6-7 years ago: also with history of seminoma with ret roperitoneal metastasis and obstructive nephropathy requiring right nephrostomy tube: who presented t o the emergency room with complaints of diffuse body swelling. He has been noticing these symptoms f or few months, but they have recently gotten worse. Upon presentation, he was hemodynamically stable, but his creatinine was found to be elevated at 12.5 7 with a BUN of 115. He had hyperkalemia with a potassium of 5.7 and anemia with hemoglobin of 7.5. He was still making urine, so he received IV Lasix and was admitted for further evaluation and care. Please see admission history and physical for further details. HOSPITAL COURSE: The patient was consulted by Dr. Day and myself and the need to start hemodialy sis was emphasized. The patient did agree to that and underwent vascular access placement by Dr. Zeke coy. He does have a nonfunctioning fistula, which was actually able to be use prior to discharge. H emodialysis was initiated and the patient tolerated the procedure very well. Outpatient dialysis was set up and the patient did undergo dialysis, Wednesday, , and Wednesday. He does remain somewh at reluctant to 3 times a week schedule and is likely to miss few dialysis. He seems to be nonchalan t about the severity of his illness. He was found to have severe anemia with drop in his hemoglobin to as low as 5.2. He was offered, but declined the packed RBC transfusion due to rastafarian reasons. He was treated with multiple rounds o f Procrit and IV iron while in the hospital. His fluid status improved and he was hemodynamically st able and was discharged after the dialysis was set up. He needs to follow up with Oncology as an outpatient. He recently had an outpatient ultrasound done for a palpable mass in the left quadrant. It was found to be a left renal cyst. The patient will fo llow up with Dr. Cowart. He will continue to follow up with his urologist for management of nephros michael tube. He will continue to follow up with Eliza Skinner as required for his history of seminoma. He was seen and examined prior to discharge. He is hemodynamically stable and discharge plan was dis cussed with him and he vocalized understanding. Total time spent 35 minutes.
[2017-10-27] MEDS ORDERED: Lisinopril 5 MG TAB PO SCH (09:00)
--- NOTE | 2017-11-23 12:39 | EKG ---
Test Reason : Blood Pressure : / mmHG Vent. Rate : 075 BPM Atrial Rate : 075 BPM P-R Int : 180 ms QRS Dur : 088 ms QT Int : 392 ms P-R-T Axes : 032 -08 057 degrees QTc Int : 437 ms Normal sinus rhythm Cannot rule out Anterior infarct , age undetermined Abnormal ECG Confirmed by CAROLINA APNIAGUA [id number]), deputy editor in chief BLAYNE MALONE ([id number]) on 11/23/2017 12:38:53 PM Referred By: Confirmed By:CAROLINA PANIAGUA
== END 2017-10-26 17:06 | disposition home or self-care (01) | DRG 252 ==
LOC: ERS 19:59 → 2NO 10-19 00:40 → SURG B 10-24 13:16
PROVIDERS: ADMIT Internal Medicine; ATTEND Internal Medicine
PROC: 02HV33Z Insertion of Infusion Device into Superior Vena Cava, Percutaneous Approach (ICD-10-PCS; principal; 2017-10-21)
PROC: B5181ZA Fluoroscopy of Superior Vena Cava using Low Osmolar Contrast, Guidance (ICD-10-PCS; 2017-10-21)
PROC: 06HY33Z Insertion of Infusion Device into Lower Vein, Percutaneous Approach (ICD-10-PCS; 2017-10-21)
PROC: 057F3ZZ Dilation of Left Cephalic Vein, Percutaneous Approach (ICD-10-PCS; 2017-10-22)
PROC: 057A3ZZ Dilation of Left Brachial Vein, Percutaneous Approach (ICD-10-PCS; 2017-10-22)
PROC: B51M1ZZ Fluoroscopy of Right Upper Extremity Veins using Low Osmolar Contrast (ICD-10-PCS; 2017-10-22)
PROC: B51W1ZZ Fluoroscopy of Dialysis Shunt/Fistula using Low Osmolar Contrast (ICD-10-PCS; 2017-10-22)
DX: I13.2 Hypertensive heart and chronic kidney disease with heart failure and with stage 5 chronic kidney disease, or end stage renal disease (principal); N18.6 End stage renal disease; N17.9 Acute kidney failure, unspecified; E87.2 Acidosis; I82.B12 Acute embolism and thrombosis of left subclavian vein; E11.22 Type 2 diabetes mellitus with diabetic chronic kidney disease; I08.1 Rheumatic disorders of both mitral and tricuspid valves; I50.43 Acute on chronic combined systolic (congestive) and diastolic (congestive) heart failure; I24.8 Other forms of acute ischemic heart disease; E88.09 Other disorders of plasma-protein metabolism, not elsewhere classified; D63.1 Anemia in chronic kidney disease; Z99.2 Dependence on renal dialysis; E87.5 Hyperkalemia; E66.01 Morbid (severe) obesity due to excess calories; Z68.30 Body mass index [BMI] 30.0-30.9, adult; N28.1 Cyst of kidney, acquired; I27.20 Pulmonary hypertension, unspecified; Z85.47 Personal history of malignant neoplasm of testis
CPT/HCPCS: 36005; 36415; 36901; 36902; 75820; 76001; 76942; 80048; 80053; 82553; 82607; 82728; 82746; 83540; 83550; 83735; 83880; 84100; 84484; 85014; 85018; 85025; 86580; 86704; 86706; 86803; 86850; 86900; 86901; 87340; 90935; 93005; 93306; 93970; 96374; 96375; A4216; C1725; C1752; C1769; C1887; G0257; G0365; J0360; J1642; J1644; J1756; J1815; J1940; J2405; J2704; J2916; J2997; J7050; J7070; Q4081; Q9967

== ENCOUNTER 2019-04-04 10:21 | Emergency (ER) | payer MEDICARE ==
[2019-04-04 13:09] LABS: #Lymphocytes 0.5 thou/uL (1.20-3.40); #Monocytes 0.4 thou/uL (0.11-0.59); #Neutrophils 2.3 thou/uL (1.40-6.50); %Eosinophils 1.5 % (0.0-10.0); %Lymphocytes 16.3 % (21.0-51.0); %Monocytes 11.4 % (0.0-10.0); %Neutrophils 70.8 % (42.0-75.0); Hemoglobin 9.9 g/dL (14.0-18.0); Mean Corpuscular HGB CONC 32.3 g/dL (32.0-36.0); Mean Corpuscular Hemoglobin 31.4 pg (27.0-31.0); Mean Corpuscular Volume 97.2 fL (78.0-98.0); Platelet Count 167 thou/uL (130-400); RBC Distribution Width 15.9 % (11.5-14.5); Red Blood Cell (RBC) Count 3.16 mill/uL (4.70-6.10); White Blood Cell (WBC) Count 3.3 thou/uL (4.8-10.8)
[2019-04-04 13:33] LABS: ALT (SGPT) Less than 7 U/L (8-55); AST (SGOT) 11 U/L (5-34); Albumin 3.4 g/dL (3.4-4.8); Alkaline Phosphatase 59 U/L (40-150); Anion Gap 21 mmol/L (10-20); BUN (Urea Nitrogen) 85 mg/dL (8.4-25.7); Bilirubin, Total 0.4 mg/dL (0.2-1.2); Calc. Creatinine Clearance 0 mL/min (70-130); Calcium 8.9 mg/dL (7.8-10.44); Carbon Dioxide 19 mmol/L (23-31); Chloride 101 mmol/L (98-107); Estimated GFR-MDRD 6; Globulin 3.9 g/dL (2.4-3.5); Glucose 89 mg/dL (80-115); Magnesium 2.2 mg/dL (1.6-2.6); Potassium 5.7 mmol/L (3.5-5.1); Protein, Total 7.3 g/dL (5.8-8.1); Sodium 135 mmol/L (136-145)
--- NOTE | 2019-04-04 13:36 | RAD ---
XR Chest 1 View Portable HISTORY: Left lower extremity pain and swelling COMPARISON: 07/28/2018 FINDINGS: The heart is enlarged. There is mild pulmonary vascular congestion. No lobar consolidation, pneumothoraces are right effusion are seen. There is suggestion of left-sided pleural effusion with infiltrate/atelectatic change in the left lung base.
--- NOTE | 2019-04-04 13:39 | ULT ---
EXAM: Left lower extremity venous Doppler US HISTORY: left lower extremity edema and pain FINDINGS: Grayscale, color-flow, Doppler evaluation, spectral analysis of the left lower extremity venous struc tures is performed with 2-D imaging. The left common femoral, superficial femoral, popliteal, posterior tibial, proximal greater saphenous and profunda femoral veins are imaged. There is normal luminal compressibility, flow, and augmentation the visualized deep venous structures of the left lower extremity. IMPRESSION: No evidence of a deep vein thrombosis in the left lower extremity.
[2019-04-04 13:49] LABS: CKMB 5.2 ng/mL (0-6.6)
== END 2019-04-04 14:50 | disposition home or self-care (01) ==
LOC: ERS 10:21
DX: I12.0 Hypertensive chronic kidney disease with stage 5 chronic kidney disease or end stage renal disease (principal); N18.6 End stage renal disease; R60.0 Localized edema
CPT/HCPCS: 36415; 71045; 80053; 82553; 83735; 83880; 84484; 85025; 93005